=== PATIENT | female | born 1955 | race Caucasian/White ===

== ENCOUNTER 2019-02-04 10:54 | Inpatient (IN) ==
--- NOTE | 2019-02-04 12:04 | Diag Imaging Result Doc PS360 ---
CHEST-PORTABLE - 02/04/2019 INDICATION: WEAKNESS COMPARISON: 01/28/2019 FINDINGS: The lungs are clear. Heart size is normal. No pneumothorax or pleural effusion. IMPRESSION: Negative exam. Electronically signed by Baljit Gleason 02/04/2019 12:02 PM
[2019-02-04 12:12] LABS: BASO% 0.1 % (0.0-0.8); EOS% 3.2 % (0.0-10.0); HEMATOCRIT 36.6 % (37.0-47.0); HEMOGLOBIN 11.7 g/dL (12.0-16.0); IMM GRAN% 0.5 % (0.0-0.5); LYMPH# 1.03 X1000 (1.2-3.4); LYMPH% 13.8 % (20.5-51.1); MCH 27.6 PG (27-31); MCV 86.3 FL (81-99); MONO% 10.3 % (1.7-9.3); MPV 8.8 FL (7.4-10.4); NEUT# 5.35 X1000 (1.4-6.5); NEUT% 72.1 % (42.2-75.2); PLT 242 X1000 (130-400); RBC 4.24 XMIL (4.2-5.4); RDW 13.3 % (11.5-14.5); WBC 7.44 X1000 (4.8-10.8)
[2019-02-04 12:13] LABS: BASO# 0.01 X1000 (0.0-0.2); EOS# 0.24 X1000 (0.0-0.7); IMM GRAN# 0.04 X1000 (0.0-0.04); MONO# 0.77 X1000 (0.11-0.59)
[2019-02-04 12:18] LABS: BILIRUBIN URINE NEGATIVE (NEGATIVE); BLOOD URINE NEGATIVE (NEGATIVE); CLARITY CLEAR (CLEAR); COLOR YELLOW; GLUCOSE URINE NEGATIVE (NEGATIVE); KETONE URINE NEGATIVE (NEGATIVE); LEUKOCYTES URINE NEGATIVE (NEGATIVE); NITRITE URINE NEGATIVE (NEGATIVE); PROTEIN URINE TRACE mg/dL (NEGATIVE); UROBILINOGEN URINE NORMAL
[2019-02-04 12:22] LABS: URINE EPITHELIAL CELLS <10 /HPF (<10); URINE SOURCE CATH
[2019-02-04 12:45] LABS: ALBUMIN 3.7 g/dL (3.5-5.0); CALCIUM 8.9 mg/dL (8.8-10.2); CREATININE 3.2 mg/dL (0.5-0.9); MAGNESIUM 2.3 mg/dL (1.5-2.7); POTASSIUM 5.3 mmol/L (3.5-5.1); TOTAL BILIRUBIN 0.2 mg/dL (0.20-1.00); TOTAL PROTEIN 6.6 g/dL (6.3-8.3)
--- NOTE | 2019-02-04 13:04 | PROVIDER DOCUMENTATION ---
This chart was entered by Lucie Pratt Scribe, acting as scribe for Juhi Mahan MD. HPI-General Adult - General Chief Complaint: Return/Recheck Stated Complaint: Generalized Weakness Time Seen by Provider: 02/04/19 10:58 Source: patient, EMS Allergies/Adverse Reactions: Patient Allergies Allergy/AdvReac Type Severity Reaction Status Date / Time No Known Allergies Allergy Verified 02/04/19 11:10 Home Medications: Home Medication List Medication Instructions Recorded Confirmed Last Taken Type Buspirone HCl 10 mg PO DAILY 01/28/19 01/28/19 Unknown History Cephalexin [Keflex] 500 mg PO 4XDAY #28 cap 01/28/19 Unknown Rx Divalproex E.r. [Depakote ER] 1 tab PO QHS 01/28/19 01/28/19 Unknown History Divalproex E.r. [Depakote ER] 1,000 mg PO QHS 01/28/19 01/28/19 Unknown History Furosemide [Lasix] 40 mg PO DAILY 01/28/19 01/28/19 Unknown History Haloperidol 5 mg PO QHS 01/28/19 01/28/19 Unknown History Haloperidol [Haldol] 2.5 mg PO DAILY 01/28/19 01/28/19 Unknown History Potassium Chloride 10 meq PO DAILY 01/28/19 01/28/19 Unknown History Trazodone [Desyrel] 150 mg PO QHS 01/28/19 01/28/19 Unknown History - History of Present Illness -Gen Adult Nature of Presenting Problems: 63 yowf presents to the ed via ems with c/o weakness and unable to ambulate for 2 weeks. pt sts has been urinating on herself while in her wheelchair because she can not walk. pt lives alone and on exam pt has rash in skin fold of abd and has foul smell to her. pt sts last bm was 4 days prior and has feces on dried on her foot. Location of Pain/Injury: reports: generalized (weakness unable to walk) Severity: reports: moderate Onset/Duration: reports: other (2 weeks) Timing: reports: still present, constant Context/Activities at Onset: reports: light activity Modifying Factors: improves with: nothing Associated Symptoms: reports: genitourinary problems, malaise, rash, weakness, trouble walking. denies: back/neck pain, chest pain, dizziness, fever/chills, headaches, nausea, shortness of breath, vomiting Similar Symptoms Previously?: Yes Recently seen or treated by another doctor?: Yes Review of Systems - Adult - REVIEW OF SYSTEMS - ADULT Constitutional: denies: chills, fever Eyes: reports: no symptoms reported Ears, Nose, Mouth & Throat: reports: no symptoms reported Cardiovascular: reports: see HPI, edema. denies: chest pain, palpitations Respiratory: denies: shortness of breath, wheezing Gastrointestinal: denies: diarrhea, nausea, vomiting Genitourinary: reports: see HPI, incontinence Musculoskeletal: reports: muscle weakness. denies: back pain, neck pain Integumentary: reports: see HPI, rash Neurological: denies: dizziness/vertigo, headache/migraines Psychiatric: reports: no symptoms reported Endocrine: reports: no symptoms reported Hematologic/Lymphatic: reports: no symptoms reported Allergic/Immunologic: reports: no symptoms reported All Other Systems: Reviewed and Negative Past History - Adult - PAST MEDICAL HISTORY-ADULT Review of Records: reports: Old Records Reviewed, Nursing Assessment Review, Medications Reviewed, Social history reviewed & non-contributory. Major Childhood Illnesses: reports: denies history Cardiovascular: reports: denies history Respiratory: reports: denies history Gastrointestinal: reports: denies history Obstetrical/Gynecological: reports: denies history Genitourinary: reports: ESRD (stage 4), incontinence, chronic UTI's Musculoskeletal: reports: denies history Neurological: reports: denies history Psychiatric: reports: depression, schizophrenia Endocrine/Immune: reports: Diabetes, thyroid disorder, other (CKD) Diabetes Type: Type 2 Other Conditions: reports: denies history - PRIOR SURGERIES/PROCEDURES Surgical/Procedure History: reports: BTL, tonsillectomy - IMMUNIZATION STATUS Childhood Immunizations: See Nurse Assessment Flu Vaccine: See Nurse Assessment - FAMILY HISTORY Family History: reviewed, not pertinent - SOCIAL HISTORY Smoking: denies Substance Use: denies Living Situation: alone Physical Exam-General - PHYSICAL EXAM-ADULT Initial Vital Signs Reviewed: Yes - CONSTITUTIONAL General Appearance: alert, mild distress, obese - EYES Eyes: PERRL/EOMI, pale conjunctivae - HEAD, EARS, NOSE, MOUTH & THROAT HENMT: negative: moist mucous membranes (dry) - NECK Neck: full range of motion, supple, normal inspection - RESPIRATORY Respiratory: chest non-tender, lungs clear, normal breath sounds - CARDIOVASCULAR Cardiovascular: normal peripheral pulses, regular rate, rhythm - GASTROINTESTINAL (ABDOMEN) Abdominal Exam: soft, other (pt has rash in skin folds of abd with foul odor) - GENITOURINARY Female Genitalia/Pelvic Exam: deferred Rectal Exam: deferred Hemoccult Exam: deferred - LYMPHATIC Lymphatic: no adenopathy - MUSCULOSKELETAL Back Exam: normal inspection Extremity: pedal edema, swelling (BLE), other (pt sts weak and unable to ambu late for 2 weeks, pt is morbidly obese. pt has feces on feet and sts has been urinating on herself for days while sitting in wheelchair at home) - SKIN Integumentary: normal color, normal turgor, warm/dry - NEUROLOGIC Neurologic: grossly normal - PSYCHIATRIC Psych/Mental Status: normal mood/affect, normal thought content, normal thought process, oriented x 3 Progress - PLAN OF CARE/RESULTS Progress/Plan/Lab Results: Vital Signs - 8 hr 02/04/19 11:05 Temperature 97.8 F Pulse Rate 87 Respiratory Rate 18 Blood Pressure 149/90 O2 Sat by Pulse Oximetry 95 Orders Category Date Time Status Straight Catheterization ORDERED Care 02/04/19 11:44 Active CHEST-PORTABLE [RAD] Stat Exams 02/04/19 11:29 Ordered CBC WITH ELECTRONIC DIFF [HEME] Stat Lab 02/04/19 11:29 Uncollected COMPREHENSIVE METABOLIC PANEL [CHEM] Stat Lab 02/04/19 11:29 Uncollected MAGNESIUM [CHEM] Stat Lab 02/04/19 11:30 Uncollected PRO B-NATRIURETIC PEPTIDE Stat Lab 02/04/19 11:29 Uncollected UA NIMS W/REFLEX CULT PL [URINALYSIS] Stat Lab 02/04/19 11:38 Ordered Result Diagrams: 02/04/19 11:47 02/04/19 11:47 - REASSESSMENT Reassessment #1 Time Reassessed: 13:22 Status: unchanged - EKG 1 Time of EKG reading by physician:: 13:11 EKG Read and Signed by:: Juhi Mahan EKG Interpretation (*Must complete 3 of following elements*): Normal Rate: 91 Rhythm: nsr [place]: normal QRS: normal [place] Interval: normal ST Wave: normal - XRAY 1 XRAY: Bilateral XRAY Study: Chest Impression: See EMR Report (CHEST-PORTABLE - 02/04/2019 INDICATION: WEAKNESS COMPARISON: 01/28/2019 FINDINGS: The lungs are clear. Heart size is normal. No pneumothorax or pleural effusion. IMPRESSION: Negative exam. Electronically signed by Baljit Gleason 02/04/2019 12:02 PM 02/04/19 1202 Interpreting Physician: Baljit Gleason MD Dictated Date/Time: 02/04/19 1202 cc: Juhi Mahan MD; None,PCP) - CONSULTS/PCP/HOSPITALIST Notification #1 *Consult/PCP/Hospitalist*: D/W DR ESTRADA Time Discussed: 13:18 Consult Disposition: Admit Departure - Departure Date of Disposition Decision: 02/04/19 Time of Disposition Decision: 13:21 DIAGNOSIS: Hyperkalemia, Generalized weakness, Tobacco use disorder Renal failure Qualifiers: Renal failure chronicity: unspecified chronicity Qualified Code(s): N19 - Unspecified kidney failure Disposition: HOME 01 Certified Medical Emergency: Emergent Condition: Stable Referrals and Follow-Ups: None,PCP [Primary Care Provider] - Discharge Education: Steps to Quit Smoking, [id number] - Critical Care Note This patient required my direct & personal management of CC.: No Attestation - Physician/ JS Attestation Patient care was provided by Advanced Practice Provider:: No The physician spent face to face time with patient:: Yes Advanced Practice Provider documentation review:: Supervising physician onsite and consulted in the evaluation and care of this patient. The physician did have a face to face encounter with the patient. This chart was documented by the indicated scribe, (Lucie Pratt Scribe) and accurately reflects the services I performed and decisions made by me, Juhi Mahan MD, as attested by the provider's signature.
[2019-02-04] MEDS: NS 1,000 ML IV SCH (15:02)
--- NOTE | 2019-02-04 17:48 | HISTORY AND PHYSICAL ---
CHIEF COMPLAINT: Inability to stand, weakness. HISTORY OF PRESENT ILLNESS: This is a 63-year-old female with a prior history of schizoaffective disorder, bipolar type, agitation, chronic kidney disease stage 4, and hypothyroid. She presented to the emergency room via EMS after they were called to her home by police officers. The patient has a long mental health history. According to a friend, the patient has been sitting in a chair at home for the last 4 days as the patient states she was unable to stand. She has sat in her on urine and feces during this time. The friend has been coming over, bringing her meals and feeding her and the patient states "I ate very good, she spoon fed me all day long." Ms. Acosta was seen in the emergency room on January 28 stating that she was unable to get out of her car and sat in the car for 2 hours in the heat. She was diagnosed with a urinary tract infection. Urine culture ultimately revealed no pathogenic growth. Getting a history from the patient is very difficult as the patient will answer some questions and sometimes during questioning the patient just turns her head and looks away and refuses to answer. The friend at the bedside is very forthcoming with information, although this information is not consistent with our records, as she insists the patient was at our ER 2 nights ago being evaluated, although the ER visit was 7 days prior. The patient and the friend state that the patient has had difficulty standing from a sitting position for quite some time. In fact, she has a lift chair at home. Neither can answer why the patient was unable to stand using the lift chair. At one point the patient answered, " because I didnt lift it. " They state that once she stands with the lift chair "she can hobble in a shuffling step when she wants to go, sometimes she gets down on all fours and crawls." The patient denies any pain. She denies any nausea, vomiting, any diarrhea or constipation. Of note, the friend called the patient's mental health worker. The mental health worker had the friend call the police for a welfare check. When the police came and saw the state the patient was in, they called an ambulance and told the patient that she had no choice, she had to come to the hospital. Therefore, she agreed. PAST MEDICAL HISTORY: 1. Chronic kidney disease stage 5. 2. Hypothyroid. 3. Diabetes mellitus type 2. 4. Schizoaffective disorder, bipolar type. 5. Paranoid schizophrenia. PAST SURGICAL HISTORY: ERCP with stent placement, tonsillectomy, tubal ligation, and multiple mouth surgeries. SOCIAL HISTORY: She does live alone. She has friends that are close by and assist with her getting meals. ALLERGIES: No known drug allergies. HOME MEDICATIONS: Trazodone, potassium chloride, levothyroxine, hydroxyzine, Haldol, Lasix, Depakote. Doses will be obtained by the nursing staff and continued once they are verified. REVIEW OF SYSTEMS: Unable to obtain from the patient. PHYSICAL EXAMINATION: GENERAL: This is a 63-year-old female who is lying on the stretcher in the emergency room, in no distress. VITAL SIGNS: Blood pressure is 127/82, with a heart rate of 84, respirations 20, temperature is 97.8 degrees oral, with room air saturations 100%. EYES: Pupils equal, round, react to light. EOMs are intact. Sclerae anicteric. HENT: Head is normocephalic, atraumatic. Mucous membranes are moist. NECK: Supple. Trachea midline. CARDIOVASCULAR: Regular rate and rhythm. S1 and S2 appreciated. No murmur. PULMONARY: Breath sounds are clear with no increased work of breathing noted. GASTROINTESTINAL: Abdomen is large, soft, nontender, with bowel sounds in all 4 quadrants. She does have a rash in her skin folds. She does have a foul odor. GENITOURINARY: She has no CVA or suprapubic tenderness. NEUROLOGIC: She is awake. She is alert. She is oriented x3. The friend states that she is just choosing not to give us information. LABS: WBC is 7.4, with hemoglobin 11.7, hematocrit 36.6, and platelets of 242,000. Sodium is 144, potassium 5.3, BUN 60, creatinine 3.2, with a glucose of 162. Urinalysis is essentially negative. Chest x-ray: Lungs are clear. Heart size is normal. No pneumothorax or pleural effusion. ASSESSMENT: 1. Generalized weakness. 2. Hyperkalemia. 3. Chronic kidney disease stage 5. 4. Schizoaffective disorder, bipolar type. 5. Paranoid schizophrenia. 6. Hypothyroid. 7. Diabetes mellitus type 2. 8. Inability to stand and walk. PLAN: The patient will be admitted to the medical-surgical floor and she will be placed on telemetry. We will get neuro checks q.6 hours and follow. We will identify her home medications and continue. We will check a CBC, CMP, magnesium, and TSH in the morning. We will continue with gentle hydration. She will be placed on a regular diet. We will place a Jessica catheter at present as the patient is not getting up. We will consult physical therapy and will consult community mental health social worker on discharge planning. We will consult wound care to evaluate. Plan discussed with Dr. Bernardo. Further treatments pending hospital course. Dictated by ALBERT Bansal for Mckay Bernardo MD cc: ALBERT Bansal MD MTDD
--- NOTE | 2019-02-04 17:50 | EKG Report ---
Test Performed on : 02/04/2019 1:11:27 PM Test Reason : CP Blood Pressure : / mmHG Vent. Rate : 091 BPM Atrial Rate : 091 BPM P-R Int : 154 ms QRS Dur : 080 ms QT Int : 362 ms P-R-T Axes : 065 012 058 degrees QTc Int : 445 ms Normal sinus rhythm. Normal ECG When compared with ECG of 28-JAN-2019 17:36, (Unconfirmed) No significant change was found Unconfirmed Result
--- NOTE | 2019-02-04 20:13 | HISTORY AND PHYSICAL ---
ADDENDUM: Patient seen and examined by myself. Full note dictated and discussed with nurse practitioner. Patient presented to the hospital noting that she has been in her wheelchair for the past 4 days, unable to get up. Interestingly, family apparently did bring her things to eat and drink, but did not assist her in getting out of her wheelchair, getting to the restroom, or assist her in calling the ambulance for assistance. Regardless, we will admit her to the hospital, IV fluids. She is in acute renal failure and will follow. cc: Mckay Bernardo MD
[2019-02-04] MEDS ORDERED: CALMOSEPTINE OINTMENT TOP PRN (22:28)
[2019-02-04] MEDS ORDERED: HALDOL PO SCH (23:15)
[2019-02-04] MEDS ORDERED: DEPAKOTE ER PO SCH (23:15)
[2019-02-04] MEDS ORDERED: DESYREL PO SCH (23:15)
[2019-02-05] MEDS: NS 1,000 ML IV SCH ×2 (02:31→16:09)
[2019-02-05 06:31] LABS: HEMATOCRIT 35.9 % (37.0-47.0); HEMOGLOBIN 11.3 g/dL (12.0-16.0); MCH 27.2 PG (27-31); MCHC 31.5 g/dL (33-37); MCV 86.5 FL (81-99); MPV 8.9 FL (7.4-10.4); RBC 4.15 XMIL (4.2-5.4); RDW 13.2 % (11.5-14.5); WBC 7.42 X1000 (4.8-10.8)
[2019-02-05 06:51] LABS: ALBUMIN 3.6 g/dL (3.5-5.0); CALCIUM 8.6 mg/dL (8.8-10.2); CREATININE 3.2 mg/dL (0.5-0.9); MAGNESIUM 2.4 mg/dL (1.5-2.7); TOTAL BILIRUBIN 0.2 mg/dL (0.20-1.00); TOTAL PROTEIN 6.5 g/dL (6.3-8.3)
[2019-02-05 06:53] LABS: POTASSIUM 5.9 mmol/L (3.5-5.1)
[2019-02-05] MEDS ORDERED: KAYEXALATE PO ONE (07:37)
[2019-02-05] MEDS ORDERED: HUMULIN R (PARKWAY) IV ONE (11:42)
[2019-02-05] MEDS ORDERED: D50W SYRINGE IV ONE (11:42)
[2019-02-05] MEDS ORDERED: ALBUTEROL 0.5% INH CONC FOR HYPERKALEMIA INH ONE (11:45)
[2019-02-05] MEDS ORDERED: CALCIUM GLUCONATE 1 GM in NS 50 ML IV ONE (12:00)
[2019-02-05] MEDS ORDERED: SODIUM BICARBONATE 8.4% IV ONE (12:00)
--- NOTE | 2019-02-05 12:36 | EKG Report ---
Test Performed on : 02/05/2019 11:56:40 AM Test Reason : pauses Blood Pressure : / mmHG Vent. Rate : 089 BPM Atrial Rate : 089 BPM P-R Int : 166 ms QRS Dur : 084 ms QT Int : 372 ms P-R-T Axes : 069 018 054 degrees QTc Int : 452 ms Normal sinus rhythm. Normal ECG When compared with ECG of 04-FEB-2019 13:11, (Unconfirmed) No significant change was found Confirmed by Clark Howe MD ([id number]) on 02/10/2019 9:38:51 PM
[2019-02-05 16:38] LABS: ALBUMIN 3.3 g/dL (3.5-5.0); CALCIUM 8.5 mg/dL (8.8-10.2); PHOSPHORUS 3.9 mg/dL (2.7-4.5); POTASSIUM 4.4 mmol/L (3.5-5.1)
--- NOTE | 2019-02-05 19:12 | PROGRESS NOTE ---
DATE: 02/05/2019 SUBJECTIVE: Patient notes that she has been constipated. She has not had a bowel movement in a few days. Denies any fevers or chills. Denies any chest pain, palpitations. Denies any shortness of breath currently. OBJECTIVE: Vital Signs: Temperature 98.6 degrees, pulse 98, respiratory 20, blood pressure 123/75. General: Patient is awake, alert, currently in no respiratory distress. She is sitting up in the bed watching TV. HEENT: Normocephalic. Neck: Supple. Cardiovascular: Regular rate. Chest: Clear, nonlabored. Abdomen: Soft, nondistended. Extremities: Moves all extremities. Neurologic: No focal changes. ASSESSMENT: 1. Hyperkalemia. Potassium is 5.8. 2. Chronic renal failure stage 5. Creatinine is 3.2. 3. Constipation. 4. Generalized weakness. 5. Schizoaffective disorder. 6. Hypothyroidism. 7. Type 2 diabetes. PLAN: We will add Kayexalate to her medications this morning to assist with her potassium as well as her constipation. We will get physical therapy involved. Further orders as needed. ADDENDUM: This afternoon patient was noted to have pauses on her x-ray. A few second pause on her EKG. I am going to recheck labs. Follow her potassium. At this point, we are going to transfer her to [facility] for Cardiology and Nephrology assist. cc: Mckay Bernardo MD
[2019-02-05] MEDS: DESYREL PO SCH (20:50)
[2019-02-05] MEDS: MIRALAX PO SCH (21:19)
[2019-02-05] MEDS: HALDOL PO SCH (21:19)
[2019-02-05] MEDS: DEPAKOTE ER PO SCH (21:19)
[2019-02-05] MEDS: CALMOSEPTINE OINTMENT TOP PRN (21:31)
[2019-02-06] MEDS: NS 1,000 ML IV SCH ×3 (05:10→20:48)
[2019-02-06 06:52] LABS: ALBUMIN 3.2 g/dL (3.5-5.0); CALCIUM 8.7 mg/dL (8.8-10.2); CREATININE 3.2 mg/dL (0.5-0.9); PHOSPHORUS 5.3 mg/dL (2.7-4.5); POTASSIUM 5.5 mmol/L (3.5-5.1)
[2019-02-06] MEDS: MIRALAX PO SCH ×2 (08:40→20:37)
[2019-02-06] MEDS ORDERED: NS 1,000 ML IV SCH (13:12)
--- NOTE | 2019-02-06 13:54 | PROGRESS NOTE ---
DATE: 02/06/2019 SUBJECTIVE: This morning, Ms. Acosta refers to be doing a little better. She, however, refers not to be able to pass any stool for the past couple days. From the history it appears that Ms Acosta was seen in her chair at home for about 4 days. She was found with a lot of fecal material and urine all over herself. OBJECTIVELY: Vital signs: This morning her blood pressure is 130/77, pulse 89, respiration is 18, temperature 99 degrees. General: Ms. Acosta is a 63-year-old female. She is in bed, no distress. HEENT: Mucosa is slightly dry. Anicteric. Acyanotic. Neck: Supple. Chest: Good air entry bilaterally. No crepitations. No rhonchi. Cardiovascular: Regular rate and rhythm. Abdomen: Soft, is distended. There is a very large ventral hernia defect in the low abdomen. Bowel sounds are present. Extremities: No pedal edema. Central nervous system: Patient is awake, alert, and follows basic commands. LABORATORY DATA: No CBC today. Chemistry is reviewed. Creatinine is 3.2, sodium is 144, potassium is 5.5. ASSESSMENT: 1. Generalized weakness associated with inability to stand and walk at home. The patient was apparently found to be in her own feces and urine. She does not seem to have any focal neurological deficits at this point. Unsure if this was all related to metabolic derangements or some underlying mental disease (schizoaffective disorder and paranoid schizophrenia). In either case, Ms. Acosta seems to be doing a little better. We are going to get Physical Therapy to start assessing her. 2. Chronic kidney disease stage 4. 3. Hyperkalemia. Likely due to underlying renal failure. The patient has been started on Lokelma. 4. History of schizoaffective disorder and paranoid schizophrenia. Noted. 5. Chronic constipation. The patient has been started on bowel regimen. We will get a KUB also to rule out any potential obstruction. 6. History of hypothyroidism with elevated TSH consistent with inadequate supplementation. We started patient back on a little higher dose of her thyroid medication. 7. Ventral hernia. Noted. cc: Malachi Birmingham MD
--- NOTE | 2019-02-06 14:11 | Diag Imaging Result Doc PS360 ---
KUB ABDOMEN - 02/06/2019 INDICATION: SBO COMPARISON: None FINDINGS: There is severe constipation with moderate rectal stool impaction. No small bowel obstruction. There is a radiodense stent in the right upper quadrant. IMPRESSION: Severe constipation with moderate rectal stool impaction. Electronically signed by Baljit Gleason 02/06/2019 2:09 PM
--- NOTE | 2019-02-06 14:36 | NEPHROLOGY CONSULTATION ---
DATE: 02/06/2019 REASON FOR CONSULTATION: Hyperkalemia and chronic kidney disease. HISTORY OF PRESENT ILLNESS: Ms. Acosta is a 63-year-old white female with schizoaffective disorder as well as diabetes, obesity, hypertension. She has known chronic kidney disease. Baseline creatinine is between 2.6 and 3.2. She was brought to the emergency room after a wellness visit at home found her sitting in a chair unable to get up. She was fed and watered by her family but she did not get up out of the chair. She had loss of bowel and bladder continence. Ultimately she was brought to the emergency room in this state. Her evaluation in the emergency room found her kidney function at baseline with moderate hyperkalemia with potassium as high as 5.9. Non gap acidosis. The remainder of her exam did not disclose a definite diagnosis in terms of a cause for her weakness. She was admitted to the hospital in [place] and then transferred to [facility]. We were asked to see her to help with management of her hyperkalemia as well as her chronic kidney disease. She was treated with Kayexalate, insulin, IV fluids, albuterol, calcium gluconate prior to transfer. With this treatment her potassium was 4.4 in the afternoon and 5.5 today. PAST MEDICAL HISTORY: As above. HOME MEDICATIONS: Include buspirone, furosemide, haloperidol, cephalexin, trazodone. ALLERGIES: None. SOCIAL HISTORY: As above. FAMILY HISTORY/REVIEW OF SYSTEMS: Otherwise noncontributory. PHYSICAL EXAM: Vital signs: Blood pressure 130/77, heart rate 89, respiration 18, afebrile. General: Morbidly obese white female lying in bed. No distress. Skin: Warm and dry. Conjunctivae are pink. Neck: Neck veins are not visible. Trachea is midline. PMI nonpalpable. Regular rate and rhythm. No gallops, murmurs, rubs. Lungs: Have equal excursion, equal breath sounds. No crackles or wheezes. Abdomen: Soft, obese, nontender. Bowel sounds present. No palpable organomegaly. No masses or bruits. Extremities: Have 1+ edema. No clubbing or cyanosis. IMPRESSION: 1. Chronic kidney disease stage 4 to 5. She is at or near her historical baseline. We will quantify her kidney function while she is in the hospital. 2. Hyperkalemia. She was treated as above. I will continue her Lokelma and observe. 3. Euvolemic or mildly hypervolemic so I will decrease her IV fluids to 50 mL an hour. cc: Dusty Long MD MTDD
[2019-02-06] MEDS: LOKELMA POWDER PACKET PO SCH (15:18)
[2019-02-06] MEDS: DESYREL PO SCH (20:36)
[2019-02-06] MEDS: LACTULOSE PO SCH (20:37)
[2019-02-06] MEDS: HALDOL PO SCH (20:37)
[2019-02-06] MEDS: DEPAKOTE ER PO SCH (20:37)
[2019-02-06] MEDS: ZOFRAN IV PRN (23:39)
[2019-02-07] MEDS: TYLENOL PO PRN ×3 (05:11→20:14)
[2019-02-07] MEDS ORDERED: CALMOSEPTINE OINTMENT TOP PRN (05:37)
[2019-02-07] MEDS: SYNTHROID PO SCH (05:59)
[2019-02-07 06:10] LABS: POTASSIUM 5.4 mmol/L (3.5-5.1)
[2019-02-07 06:11] LABS: ALBUMIN 3.5 g/dL (3.5-5.0); CALCIUM 8.9 mg/dL (8.8-10.2); CREATININE 3.1 mg/dL (0.5-0.9); PHOSPHORUS 4.8 mg/dL (2.7-4.5)
[2019-02-07] MEDS: MIRALAX PO SCH ×2 (08:25→20:22)
[2019-02-07] MEDS: LACTULOSE PO SCH ×2 (08:25→20:21)
[2019-02-07] MEDS: NS 1,000 ML IV SCH (09:53)
[2019-02-07] MEDS: LOKELMA POWDER PACKET PO SCH (13:53)
--- NOTE | 2019-02-07 14:19 | ECHO REPORT ---
ORDER DATE: 02/06/2019 INTERPRETING PHYSICIAN: Dr. Donovan Osei. ECHOCARDIOGRAPHIC MEASUREMENTS: 1. Interventricular septum 0.9. 2. Left ventricular posterior wall 0.9. 3. Diastolic diameter 4.5. 4. Left atrium 4. 5. Aorta 3. SUMMARY OF THE 2-DIMENSIONAL IMAGIN. Aortic valve leaflets are trileaflet. 2. Pulmonic valve was normal. 3. Tricuspid valve was normal. 4. Mitral valve was normal. 5. There is trace pulmonary regurgitation. 6. Mild mitral regurgitation. 7. Mild tricuspid regurgitation. Peak velocity across the tricuspid valve was 2.4 m/sec. 8. Pulmonary artery systolic pressure of 32 mmHg. 9. Peak velocity across the aortic valve is less than 2 m/sec. By Doppler studies, there is no aortic stenosis or regurgitation. 10. Normal left ventricular cavity size. Estimated ejection fraction of 65%. 11. There is no pericardial effusion or obvious intracardiac mass or thrombus seen. 12. Optison was used to assess left ventricular systolic function. cc: Donovan Osei MD
--- NOTE | 2019-02-07 14:25 | PROGRESS NOTE ---
DATE: 02/07/2019 SUBJECTIVE: This morning, Ms. Acosta refers to be doing a whole lot better. Denies any new complaints. OBJECTIVE: Vital Signs: Blood pressure is 145/70, pulse of 82, respirations are 18, temperature is 98.0 degrees. General Examination: Ms. Acosta is a 63-year-old, morbidly obese, female. She is in bed. No distress. HEENT: Mucosa is pink and moist. Anicteric. Acyanotic. Neck: Supple. Chest: Clear to auscultation. Cardiovascular: Regular rate and rhythm. Abdomen: Soft. Distended but nontender. There is a very large ventral hernia defect in the lower abdomen. Extremities: No pedal edema. CORE INSERTER: The patient is awake, alert, oriented, and follows basic commands. Is and Os: Urine output was 1550. Patient is currently negative balance of 13,829. Renal Function Tests: Potassium is 5.4, creatinine is 3.1. ASSESSMENT: 1. Generalized weakness associated with inability to ambulate at home. The patient does not seem to have any neurological deficit. Will be pending physical therapy to assess the patient. 2. Chronic kidney disease stage 4 to 5. Creatinine seems to be baseline. 3. Hyperkalemia secondary to chronic kidney disease. The patient is on Lokelma. 4. History of schizoaffective disorder and paranoid schizophrenia, stable. 5. Chronic constipation. We will continue with bowel regimen. 6. Hypothyroidism. We will continue with a thyroid supplement. 7. Large ventral hernia noted. cc: Malachi Birmingham MD
[2019-02-07] MEDS: HALDOL PO SCH (20:21)
[2019-02-07] MEDS: DESYREL PO SCH (20:21)
[2019-02-07] MEDS: DEPAKOTE ER PO SCH (20:21)
[2019-02-08] MEDS: COLACE PO SCH ×4 (00:28→20:16)
--- NOTE | 2019-02-08 04:35 | CARDIOLOGY CONSULTATION ---
DATE: 02/05/2019 Cardiology was consulted. The patient had a 3-second pause noted on the telemetry. Patient was transferred from [place] to [facility] ICU. Currently vital signs are stable. She is in sinus rhythm. No further pause was noted. She has chronic kidney disease and has hyperkalemia, which was treated earlier today. The patient is a 63-year-old, lady with history of bipolar schizoaffective disorder, chronic kidney disease, hypothyroidism. She came to the emergency room via EMS. Police officers were called. Patient has a long history of mental health issues. Apparently she had been sitting on a chair at home for the last 4 days. She was unable to stand up as she had swelling in her legs. She did not feel well. She denies any chest pain. There is no cough with expectoration. She was diagnosed to have urinary tract infection. She had generalized weakness but no focal weakness to suggest a CVA. She denies any nausea or vomiting, diarrhea or constipation. She has not had any fevers. She has had a cough but no chills. PAST MEDICAL HISTORY: 1. Chronic kidney disease. 2. Hypothyroid. 3. Diabetes. 4. Bipolar disorder. 5. Schizophrenia. PAST SURGICAL HISTORY: 1. ERCP with stent placement. 2. Tonsillectomy. 3. Tubal ligation. 4. Multiple mouth surgeries. SOCIAL HISTORY: She does live alone. She has friends who assist her. HOME MEDICATIONS: Included buspirone 10 mg, Depakote 500 mg tablets 1000 mg at bedtime, Lasix 40 mg a day, haloperidol 5, cephalexin 500, haloperidol 2.5, trazodone 150. In the hospital, she has received Kayexalate, dextrose insulin. PHYSICAL EXAMINATION: Vital signs: Blood pressure 120/80, heart rate 110. Cardiovascular: First and second heart sounds. There was no S3 gallop. There was faint murmur. Respiratory System: Distant breath sounds. No obvious crepitations. Abdomen: Loud, soft, nontender. Examination of extremities: Reveal mild pitting pedal edema. Central Nervous System: Alert, was moving extremities. Detailed central nervous system examination not performed. DIAGNOSTIC DATA: 1. Chest x-ray was unremarkable. 2. Electrocardiogram revealed normal sinus rhythm. There was no ST-T changes to suggest ischemia. LABORATORY EXAMINATION: Sodium 144, potassium 5.3, subsequent potassium was 5.9, BUN 57, creatinine 3.2, magnesium 2.4. TSH 5.7, alkaline phosphatase 115, proBNP 570. WBC 7.43, hemoglobin 11.3, hematocrit 35, platelet count of 242,000. ASSESSMENT AND PLAN: 1. Ms. Siria Acosta is a 63-year-old, lady with history of paranoid schizophrenia, bipolar disorder, diabetes, hypothyroid, chronic kidney disease who is admitted with having being feeling weak, unable to get up and ambulate. She has chronic kidney disease, and Nephrology has been consulted. 2. From a cardiac standpoint, no chest pain. She had a 3-second pause maybe secondary to electrolyte imbalance. We will get an echocardiogram. Labs again have been drawn after her Kayexalate. Further labs pending. 3. Diabetes. Continue with her medications. 4. She has got significant weakness, generalized, unknown etiology, and I will get cardiac enzymes. There may be also an element of rhabdomyolysis accounting for her worsening renal function as well. Thank you for the consult. We will follow. cc: Donovan Osei MD
[2019-02-08] MEDS: NS 1,000 ML IV SCH (05:13)
[2019-02-08] MEDS: ZOFRAN IV PRN ×2 (05:13→22:36)
[2019-02-08] MEDS: SYNTHROID PO SCH (06:00)
[2019-02-08 06:15] LABS: ALBUMIN 3.6 g/dL (3.5-5.0); CALCIUM 8.9 mg/dL (8.8-10.2); PHOSPHORUS 4.6 mg/dL (2.7-4.5); POTASSIUM 5.4 mmol/L (3.5-5.1)
[2019-02-08 06:16] LABS: CALCIUM 8.8 mg/dL (8.8-10.2); PHOSPHORUS 4.7 mg/dL (2.7-4.5)
[2019-02-08 06:34] LABS: FERRITIN 88 ng/mL (13-150)
[2019-02-08] MEDS: VENOFER 200 MG in NS 150 ML IV SCH (08:02)
[2019-02-08] MEDS: LACTULOSE PO SCH ×3 (08:02→20:16)
[2019-02-08] MEDS: MIRALAX PO SCH ×3 (08:02→20:16)
--- NOTE | 2019-02-08 13:23 | PROGRESS NOTE ---
DATE: 02/08/2019 SUBJECTIVE: This morning Ms. Acosta refers to be doing a little better. She still complains of being constipated. She however feels slightly stronger. OBJECTIVE: Vital Signs: Blood pressure 170/82, pulse of 85, respirations 18, and temperature 98.4 degrees. Patient is saturating 96% on room air. General: Ms. Acosta is a 63-year-old morbidly obese female. She is in bed. BMI is 50. She was not in any cardiopulmonary distress. HEENT: Mucosa is pink and moist. Anicteric. Acyanotic. Neck: Supple. Chest: Good air entry bilateral. There were no crepitations. No rhonchi. Cardiovascular: Regular rate and rhythm. Abdomen: Soft. Distended. There is a very large ventral hernia defect in the lower abdomen. Extremities: No pedal edema. DOUBLE END SEWER: Patient is awake, alert, and follows basic commands. LABORATORY DATA: Also has been reviewed. Chemistry shows potassium is 5.4, creatinine is 3, which has been fairly same as yesterday. Ferritin is 88 with a percent saturation of 13 consistent with iron deficiency. PTH is 88. ASSESSMENT: 1. Generalized weakness associated with inability to ambulate at home. The patient has no neurological deficit, and she is pending physical therapy evaluation. 2. CKD stage IV to V. The patient's creatinine continues to be in the 3's. She is getting a 24 hour urine collection today. 3. Hyperkalemia secondary to CKD. We will continue with Lokelma. 4. Chronic constipation. We will continue with bowel regimen. 5. Hypothyroidism. Patient is on supplement. 6. Large ventral hernia noted. 7. History of schizoaffective disorder and paranoid schizophrenia stable. 8. Iron deficiency anemia. Patient has been started on iron infusion by Nephrology. 9. Mild secondary hyperparathyroidism due to underlying renal failure. In general, I think Ms. Acosta is fairly stable with pending physical therapy evaluation today. She is also getting a 24 hour urine collection for adequate renal function estimation. The patient has been started on iron infusion for iron deficiency anemia. cc: Malachi Birmingham MD [facility]
[2019-02-08] MEDS: LOKELMA POWDER PACKET PO SCH (15:10)
--- NOTE | 2019-02-08 18:19 | NEPHROLOGY PROGRESS NOTE ---
DATE: 02/08/2019 SUBJECTIVE: Patient resting in bed. She states that she has continued to have some difficulty breathing. OBJECTIVE: Vital Signs: Temperature 97.6 degrees, pulse 95, respiratory rate 20, blood pressure 143/69. Intake 2.1 L. Output 7 L. PHYSICAL EXAMINATION: General: Middle-aged female, resting in bed. She does not appear in acute distress. HEENT: Normocephalic, atraumatic. Oral mucosa appears moist. Neck: Supple without JVD. Cardiovascular: Regular rate and rhythm. Pulmonary: Equal excursion. Decreased breath sounds. No increased work of breathing. Abdomen: Obese, nontender. Positive bowel sounds. Genitourinary: Not inspected. Jessica catheter. Extremities: 1+ edema. No clubbing, cyanosis. Integumentary: Skin is pale, warm and dry. Neurologic: Grossly nonfocal. LABORATORY DATA: Sodium 144, potassium 5.4, CO2 22, creatinine 3.0. ASSESSMENT AND PLAN: 1. Chronic kidney disease stage 4 to 5. Renal function appears close to his historical baseline. Order a 24 hour urine and a total protein to quantify and stratify her current renal function. 2. Hyperkalemia stable. Continue on Lokelma. 3. Fluid volume is not grossly overloaded and again she has been making greater than 6 L urine a day. Dictated by ALBERT Bernal for Dusty Long MD Face to face encounter, data reviewed, discussed with Trung Cole on 02/08/19. I agree with the above assessment and plan of care. cc: Dusty Long MD [facility]
[2019-02-08] MEDS: DESYREL PO SCH ×2 (19:34→20:16)
[2019-02-08] MEDS: TYLENOL PO PRN (19:34)
[2019-02-08] MEDS: HALDOL PO SCH ×2 (19:34→20:16)
[2019-02-08] MEDS: DEPAKOTE ER PO SCH ×2 (19:35→20:16)
[2019-02-09] MEDS: ZOFRAN IV PRN (05:35)
[2019-02-09 05:45] LABS: ALBUMIN 3.5 g/dL (3.5-5.0); CALCIUM 8.8 mg/dL (8.8-10.2); CREATININE 3.1 mg/dL (0.5-0.9); PHOSPHORUS 4.8 mg/dL (2.7-4.5); POTASSIUM 5.4 mmol/L (3.5-5.1)
[2019-02-09] MEDS: SYNTHROID PO SCH (06:14)
[2019-02-09] MEDS: COLACE PO SCH ×2 (09:16→20:05)
[2019-02-09] MEDS: LACTULOSE PO SCH (09:16)
[2019-02-09] MEDS: VENOFER 200 MG in NS 150 ML IV SCH (09:16)
[2019-02-09] MEDS: MIRALAX PO SCH ×2 (09:17→20:06)
[2019-02-09] MEDS ORDERED: PATIENT'S OWN MED IM ONE (12:34)
[2019-02-09] MEDS: LOKELMA POWDER PACKET PO SCH (13:00)
--- NOTE | 2019-02-09 14:28 | PROGRESS NOTE ---
DATE: 02/09/2019 SUBJECTIVE: This morning, Ms. Acosta refers to be doing fairly okay. No new complaints. OBJECTIVE: Vital Signs: Blood pressure is 148/72, pulse of 89, respirations are 20, temperature is 97.8 degrees. General Examination: Ms. Acosta is a 63-year-old, obese, female. BMI is 49.9. She is in bed. No distress. HEENT: Mucosa is pink, slightly dry. Anicteric. Acyanotic. Neck: Supple. Chest: Clear to auscultation. Cardiovascular: Regular rate and rhythm. Abdomen: Soft and distended. There is a large ventral hernia defect in the lower abdomen. Extremities: No pedal edema. 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 Follows basic commands. Laboratory Data: Sodium is 142, potassium is 5.4, chloride is 107, bicarb is 24, BUN is 49, creatinine is 3.1. Is and Os: Urine output was 8470. It is currently negative balance over 26,000. Current Medications: Have all been reviewed. ASSESSMENT: 1. Generalized weakness and deconditioning on presentation. 2. Chronic kidney disease stage IV to V. Creatinine is fairly at baseline. 3. Polyuria. Patient seems to be having excessive urine output for the past 3 days. She is currently about 26,000 fluid negative. There is an order for fluid restriction from nephrology. 4. Chronic constipation. Patient is on bowel regimen. 5. Hyperkalemia secondary to chronic kidney disease. The patient is on Lokelma. 6. Large ventral hernia noted. 7. History of schizoaffective and paranoid schizophrenia. 8. Iron deficiency anemia. Patient is getting iron infusion. 9. Mild secondary hyperparathyroidism due to renal failure. PLAN: In general, Ms. Acosta is clinically stable. Has been evaluated by physical therapy on three different occasions. She seems to be feeling a little stronger than before. We are going to follow further recommendations from nephrology. We will also follow the lab trend of the fluid deprivation tests. cc: Malachi Birmingham MD [facility]
--- NOTE | 2019-02-09 15:22 | NEPHROLOGY PROGRESS NOTE ---
DATE: 02/09/2019 SUBJECTIVE: The patient resting in bed. She is complaining of some abdominal cramping. States she has not had a bowel movement in a week. OBJECTIVE: Vital Signs: Temperature 98.9 degrees, pulse 85, respiratory rate 19, blood pressure 153/85. Intake not measured. Output 8.4 L. Her cumulative output has been 37 L. General: This is a middle-age female resting in bed. Does not appear in acute distress. HEENT: Normocephalic, atraumatic. NELY. Oral mucosa moist. Dentition poor. Neck: Supple without JVD. Cardiovascular: Regular rate and rhythm. Pulmonary: Clear bilaterally. Abdomen: Soft. Denies tenderness. GENITOURINARY: Jessica catheter with clear yellow urine. A 24-hour urine in place. Extremities: One plus edema. Integumentary: Skin is warm and dry. Neurologic: Grossly nonfocal. LABORATORY DATA: Sodium 142, potassium 5.4, CO2 of 24, creatinine 3.1. ASSESSMENT AND PLAN: 1. Chronic kidney disease stage IV to V. Likely from lithium. 2. Polyuria. 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 Water deprivation test today. Dictated by ALBERT Bernal for Dusty Long MD Face to face encounter, data reviewed, discussed with Trung Cole on 02/09/19. I agree with the above assessment and plan of care. cc: Dusty Long MD [facility]
[2019-02-09] MEDS: DESYREL PO SCH (20:02)
[2019-02-09] MEDS: HALDOL PO SCH (20:03)
[2019-02-09] MEDS: DEPAKOTE ER PO SCH (20:03)
[2019-02-09] MEDS: CALMOSEPTINE OINTMENT TOP PRN (20:16)
[2019-02-09] MEDS: TYLENOL PO PRN (22:48)
[2019-02-10] MEDS: TYLENOL PO PRN (05:39)
[2019-02-10] MEDS: SYNTHROID PO SCH ×2 (05:40→06:00)
[2019-02-10 06:08] LABS: ALBUMIN 3.6 g/dL (3.5-5.0); CALCIUM 8.8 mg/dL (8.8-10.2); CREATININE 3.3 mg/dL (0.5-0.9); PHOSPHORUS 4.4 mg/dL (2.7-4.5); POTASSIUM 4.9 mmol/L (3.5-5.1)
[2019-02-10] MEDS ORDERED: DDAVP SUBQ ONE (09:00)
[2019-02-10] MEDS: VENOFER 200 MG in NS 150 ML IV SCH (09:47)
[2019-02-10] MEDS: COLACE PO SCH ×2 (09:47→20:55)
[2019-02-10] MEDS: MIRALAX PO SCH ×2 (09:47→20:55)
--- NOTE | 2019-02-10 10:19 | PROGRESS NOTE ---
DATE: 02/10/2019 SUBJECTIVE: This morning, Ms. Gallagher referred to be doing pretty okay and no new complaints. She still has not had a bowel movement. OBJECTIVE: Vital signs: Blood pressure is 142/75, pulse of 81, respirations 18, temperature 98 degrees. General: Ms. Acosta is a 63-year-old female. She is in bed. No distress. HEENT: Mucosa is pink and slightly dry. Anicteric. Acyanotic. Neck: Supple. Chest: Good air entry bilateral. No crepitations. No rhonchi. Cardiovascular: Regular rate and rhythm. Abdomen: Soft, distended, and a large ventral hernia defect on the left lower abdomen. Extremities: No pedal edema. Central nervous system: Patient is awake, alert. Follows basic commands. Intake and output: Urine output was 8470 for a total negative balance of over 32,000. ASSESSMENT: 1. Generalized weakness and deconditioning on presentation. Physical Therapy is on board. 2. Chronic kidney disease stage 4 to 5. Creatinine continues to be fairly stable. 3. Polyuria. Presumably drug-induced nephrogenic diabetes insipidus. Urinalysis is being done to rule this out. I understand the patient had a remote history of taking lithium in the past. Currently she is not on that. 4. Chronic constipation. Patient is on bowel regimen. 5. Hyperkalemia secondary to chronic kidney disease, improved. 6. History of schizoaffective and paranoid schizophrenia. We will continue with antipsychotics. 7. Large ventral hernia noted. 8. Iron deficiency anemia. Patient is on Venofer infusion. cc: Malachi Birmingham MD [facility]
[2019-02-10 13:25] LABS: ALBUMIN 3.4 g/dL (3.5-5.0); CALCIUM 8.7 mg/dL (8.8-10.2); CREATININE 3.3 mg/dL (0.5-0.9); PHOSPHORUS 4.2 mg/dL (2.7-4.5)
[2019-02-10 14:59] LABS: ALBUMIN 3.6 g/dL (3.5-5.0); CALCIUM 8.7 mg/dL (8.8-10.2); CREATININE 3.2 mg/dL (0.5-0.9); PHOSPHORUS 4.1 mg/dL (2.7-4.5); POTASSIUM 4.8 mmol/L (3.5-5.1)
[2019-02-10] MEDS: D5W 2,000 ML IV SCH ×2 (18:38→22:53)
--- NOTE | 2019-02-10 19:47 | NEPHROLOGY PROGRESS NOTE ---
DATE: 02/10/2019 SUBJECTIVE: Patient is sitting up in bed. She is asking if she can have something to drink. OBJECTIVE: Vital Signs: Temperature 98, pulse 81, respiratory rate 18, oxygen saturation 95%. Intake none, output 5.3 L. General: Middle-aged female, resting in bed. No acute distress. HEENT: Normocephalic and atraumatic. Neck: Supple. No JVD. Cardiovascular: Regular rate and rhythm. Pulmonary: Clear. Abdomen: Soft. Positive bowel sounds. : Jessica catheter. Extremities: Trace to 1+ edema. Integumentary: Skin warm and dry. Neurologic: Grossly nonfocal. LAB DATA: Sodium 153, potassium 4.9. BUN 48, creatinine 3.3. She had a urine osmolality of 254. ASSESSMENT AND PLAN: 1. Chronic kidney disease stage 4 to 5. Likely secondary to previous lithium use. 2. Polyuria. 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 She has completed a water deprivation test. Her urine osmolality remains low. We will give 2 mcg of DDAVP and then repeat her urine osmolality and renal profile every 2 hours x2. Patient can resume fluids after the test is complete. Dictated by ALBERT Bernal for Dusty Long MD Face to face encounter, data reviewed, discussed with Trung Cole on 02/10/19. I agree with the above assessment and plan of care. cc: Dusty Long MD [facility]
[2019-02-10] MEDS: DESYREL PO SCH (20:55)
[2019-02-10] MEDS: HALDOL PO SCH (20:55)
[2019-02-10] MEDS: DEPAKOTE ER PO SCH (20:56)
[2019-02-10] MEDS ORDERED: D5W 1,000 ML IV SCH (23:00)
[2019-02-11] MEDS ORDERED: TUCKS HEMORRHOIDAL OINTMENT PR PRN (03:43)
[2019-02-11] MEDS ORDERED: PREPARATION H OINT PR PRN (04:01)
[2019-02-11] MEDS: TYLENOL PO PRN (04:49)
[2019-02-11 06:19] LABS: BASO# 0.03 X1000 (0.0-0.2); BASO% 0.3 % (0.0-0.8); EOS# 0.28 X1000 (0.0-0.7); EOS% 2.9 % (0.0-10.0); HEMATOCRIT 36.5 % (37.0-47.0); HEMOGLOBIN 11.1 g/dL (12.0-16.0); LYMPH% 15.5 % (20.5-51.1); MCH 26.9 PG (27-31); MCHC 30.4 g/dL (33-37); MCV 88.4 FL (81-99); MONO# 1.19 X1000 (0.11-0.59); MONO% 12.3 % (1.7-9.3); MPV 9.2 FL (7.4-10.4); NEUT# 6.57 X1000 (1.4-6.5); PLT 236 X1000 (130-400); RBC 4.13 XMIL (4.2-5.4); RDW 13.1 % (11.5-14.5); WBC 9.67 X1000 (4.8-10.8)
[2019-02-11] MEDS: SYNTHROID PO SCH (06:36)
[2019-02-11 06:46] LABS: ALBUMIN 3.5 g/dL (3.5-5.0); CREATININE 2.9 mg/dL (0.5-0.9); PHOSPHORUS 4.3 mg/dL (2.7-4.5); POTASSIUM 4.1 mmol/L (3.5-5.1)
[2019-02-11] MEDS ORDERED: HALDOL DECANOATE IM ONE (08:06)
[2019-02-11] MEDS: VENOFER 200 MG in NS 150 ML IV SCH (09:29)
[2019-02-11] MEDS: MIRALAX PO SCH ×2 (09:29→21:27)
[2019-02-11] MEDS: COLACE PO SCH ×2 (09:29→21:27)
[2019-02-11] MEDS ORDERED: GOLYTELY PO ONE (10:25)
--- NOTE | 2019-02-11 10:54 | PROGRESS NOTE ---
DATE: 02/11/2019 SUBJECTIVE: This morning, Ms. Acosta refers to be doing pretty well. No new complaints. She still remains constipated. OBJECTIVE: Vital Signs: Blood pressure is 125/82, pulse of 80, respirations are 18, temperature is 98.6 degrees. General Examination: Ms. Acosta is a 63-year-old, female, morbidly obese. BMI is 50.4. She is in bed. No distress. HEENT: Mucosa is pink and moist. Anicteric. Acyanotic. Neck: Supple. Chest: Good air entry bilaterally. No crepitations. No rhonchi. Cardiovascular: Regular rate and rhythm. Abdomen: Soft, distended. There is a large ventral hernia defect on the left lower abdomen. Extremities: No pedal edema. 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 Laboratory Data: CBC is unremarkable except for mild normocytic anemia. Chemistry is unremarkable. Creatinine is down to 2.9. Urine osmolarity did improve with administration of the desmopressin. ASSESSMENT: 1. Generalized weakness and deconditioning on presentation. 2. Chronic kidney disease stage 4 to 5. 3. Polyuria with analysis consistent with diabetes insipidus. The patient's urine osmolarity seems to have increased slightly after the administration of desmopressin, however not enough for a central type of diabetes insipidus. We will wait for nephrology to evaluate the patient and give us further recommendations. 4. Chronic constipation. Patient does not seems to be responding with current bowel regimen. We will start her on GoLYTELY. 5. Hyperkalemia, resolved. 6. Schizoaffective disorder and paranoid schizophrenia. 7. Large ventral hernia noted. 8. Iron deficiency anemia. The patient is on Venofer infusion. cc: Malachi Birmingham MD [facility]
--- NOTE | 2019-02-11 19:17 | NEPHROLOGY PROGRESS NOTE ---
DATE: 02/11/2019 SUBJECTIVE: Patient resting in bed. Does not appear in distress. OBJECTIVE: Vital Signs: Temperature 98.3 degrees, pulse 87, respiratory rate 20, blood pressure 149/88. Intake 4 L, output 4.1 L. General: This is a middle-aged female, resting in bed. She is awake and alert in no acute distress. HEENT: Normocephalic, atraumatic. PERRLA. Neck: Supple without JVD. Cardiovascular: Regular rate. Pulmonary: Clear bilaterally. Abdomen soft, nontender, normal bowel sounds. Jessica catheter, yellow urine. Extremities: No edema. LABORATORY STUDIES: WBC of 9.6, hemoglobin 11.1, sodium 142, potassium 4.1, CO2 22, creatinine of 2.9 (3.2, 3.3). ASSESSMENT AND PLAN: 1. Chronic kidney disease 4 to 5 secondary to previous lithium use. Renal functions are fairly stable at this time. 2. 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 No medication regimen change. Patient just needs to stay hydrated at this point. 3. Electrolytes, acid-base balance anemia, stable. Dictated by ALBERT Bernal for Dusty Long MD Face to face encounter, data reviewed, discussed with Trung Cole on 02/11/19. I agree with the above assessment and plan of care. cc: Dusty Long MD [facility]
[2019-02-11] MEDS: DESYREL PO SCH (21:27)
[2019-02-11] MEDS: DEPAKOTE ER PO SCH (21:27)
[2019-02-11] MEDS: HALDOL PO SCH (21:27)
[2019-02-12 06:14] LABS: BASO# 0.02 X1000 (0.0-0.2); BASO% 0.2 % (0.0-0.8); EOS# 0.24 X1000 (0.0-0.7); EOS% 2.8 % (0.0-10.0); HEMATOCRIT 35.1 % (37.0-47.0); HEMOGLOBIN 11.1 g/dL (12.0-16.0); IMM GRAN# 0.12 X1000 (0.0-0.04); IMM GRAN% 1.4 % (0.0-0.5); LYMPH# 1.58 X1000 (1.2-3.4); LYMPH% 18.6 % (20.5-51.1); MCH 27.2 PG (27-31); MCHC 31.6 g/dL (33-37); MONO# 0.97 X1000 (0.11-0.59); MONO% 11.4 % (1.7-9.3); MPV 9.1 FL (7.4-10.4); NEUT# 5.57 X1000 (1.4-6.5); NEUT% 65.6 % (42.2-75.2); PLT 239 X1000 (130-400); RBC 4.08 XMIL (4.2-5.4)
[2019-02-12 06:34] LABS: ALBUMIN 3.2 g/dL (3.5-5.0); CALCIUM 8.5 mg/dL (8.8-10.2); CREATININE 2.8 mg/dL (0.5-0.9); PHOSPHORUS 4.5 mg/dL (2.7-4.5); POTASSIUM 4.2 mmol/L (3.5-5.1)
[2019-02-12] MEDS: SYNTHROID PO SCH (07:55)
--- NOTE | 2019-02-12 09:15 | Diag Imaging Result Doc PS360 ---
EXAM: KUB ABDOMEN 02/12/2019 HISTORY: SBO TECHNIQUE: KUB COMMENT: There is a large amount of stool in the rectum. There is an apparent biliary stent. There is gas and stool throughout the colon. There is either a prominent outpouching of the abdomen inferolaterally on the left or a large ventral hernia. There is no evidence of small bowel dilatation in the stomach is not particularly distended. No evidence organomegaly or mass is present. IMPRESSION: Constipation with fecal impaction. Electronically signed by Tyshawn Wise 02/12/2019 9:12 AM
[2019-02-12] MEDS: VENOFER 200 MG in NS 150 ML IV SCH (10:17)
[2019-02-12] MEDS: COLACE PO SCH ×2 (10:17→22:41)
[2019-02-12] MEDS: MIRALAX PO SCH ×2 (10:18→22:40)
[2019-02-12] MEDS: TYLENOL PO PRN ×2 (15:23→23:35)
--- NOTE | 2019-02-12 15:55 | PROGRESS NOTE ---
DATE: 02/12/2019 SUBJECTIVE: This morning Ms. Acosta refers to be doing a whole lot better. She has been having adequate bowel movement. She was able to move around with physical therapy. OBJECTIVE: Blood pressure is 154/91, pulse of 90, respirations 20, temperature 98.4 degrees.General: Ms. Acosta is a 63-year-old morbidly obese female. She is in bed. No distress. Mucosa is pink and moist. Anicteric. Acyanotic. Neck: Supple. Chest: Good air entry bilateral. There were no crepitations, no rhonchi. Cardiovascular: Regular rate and rhythm. Abdomen: Soft, distended. There is a ventral hernia defect in the lower left abdomen. Extremities: No pedal edema. 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 No focal neurological deficit. LABORATORY DATA: CBC is reviewed. There is mild normocytic anemia. Chemistry is also reviewed. Sodium is up to 142, creatinine is 2.8. The patient urine output was 8100 overnight. He is currently behind 38,000. ASSESSMENT: 1. Generalized weakness and deconditioning. 2. Chronic kidney disease stage 4 to 5. 3. 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 4. Chronic constipation, improved. 5. Critical hyperkalemia on presentation, improved. 6. History of schizoaffective disorder and paranoid schizophrenia. 7. Large ventral hernia. 8. Iron deficiency anemia, patient on infusion. So today Ms. Acosta has been having adequate bowel movements. She feels better. A KUB continues to show some constipation with fecal impaction. We will continue with the bowel regimen. We will also continue with physical therapy and get Ms. Acosta a bit stronger before we discharge her. cc: Malachi Birmingham MD
--- NOTE | 2019-02-12 20:40 | NEPHROLOGY PROGRESS NOTE ---
DATE: 02/12/2019 SUBJECTIVE: Patient resting in bed. She states that she would like to get up and go to the bathroom. OBJECTIVE: Vital Signs: Temperature 98.4 degrees, pulse 90, respiratory rate 20, blood pressure 133/86. Intake 1.5 L. Output 8.1 L. General: Middle-aged female, resting in bed. Does not appear in distress. HEENT: Normocephalic, atraumatic. Oral mucosa moist. Poor dentition. Neck: Supple, thick. Cardiovascular: Regular rate and rhythm. Pulmonary: She is clear bilaterally. Equal excursion. Abdomen: Obese soft, positive bowel sounds. : Jessica catheter. Extremities: No edema. Integumentary: Skin is warm and dry. LABORATORY STUDIES: WBC of 8.5, hemoglobin 11.1. Sodium 147, potassium 4.2, CO2 21, creatinine 2.8. Albumin 3.2. ASSESSMENT AND PLAN: 1. Chronic kidney disease stage IV to V secondary to previous lithium use. Her renal function remains stable to slightly improved. No indications for intervention otherwise. 2. 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 Continue hydration. 3. Electrolytes, acid-base balance. These are stable. DISPOSITION: Deconditioning from a renal perspective she can have her Jessica catheter removed and bedside commode privileges and continue with physical therapy. She can be discharged at the discretion of the primary. We will follow up as an outpatient 2 weeks after discharge. Dictated by ALBERT Bernal for Dusty Long MD Face to face encounter, data reviewed, discussed with Trung Cole on 02/12/19. I agree with the above assessment and plan of care. cc: Dusty Long MD [facility]
[2019-02-12] MEDS: DESYREL PO SCH (22:40)
[2019-02-12] MEDS: HALDOL PO SCH (22:40)
[2019-02-12] MEDS: DEPAKOTE ER PO SCH (22:40)
[2019-02-13] MEDS: TYLENOL PO PRN ×2 (04:45→12:17)
[2019-02-13 05:39] LABS: BASO# 0.02 X1000 (0.0-0.2); BASO% 0.2 % (0.0-0.8); EOS# 0.19 X1000 (0.0-0.7); EOS% 2.2 % (0.0-10.0); HEMATOCRIT 36.9 % (37.0-47.0); HEMOGLOBIN 11.6 g/dL (12.0-16.0); IMM GRAN# 0.13 X1000 (0.0-0.04); IMM GRAN% 1.5 % (0.0-0.5); LYMPH# 1.59 X1000 (1.2-3.4); LYMPH% 18.6 % (20.5-51.1); MCHC 31.4 g/dL (33-37); MONO# 0.84 X1000 (0.11-0.59); MONO% 9.8 % (1.7-9.3); NEUT# 5.79 X1000 (1.4-6.5); NEUT% 67.7 % (42.2-75.2); PLT 235 X1000 (130-400); RBC 4.29 XMIL (4.2-5.4); RDW 13.2 % (11.5-14.5); WBC 8.56 X1000 (4.8-10.8)
[2019-02-13 06:19] LABS: ALBUMIN 3.4 g/dL (3.5-5.0); CALCIUM 8.5 mg/dL (8.8-10.2); CREATININE 2.9 mg/dL (0.5-0.9); PHOSPHORUS 4.9 mg/dL (2.7-4.5); POTASSIUM 4.2 mmol/L (3.5-5.1)
[2019-02-13] MEDS: SYNTHROID PO SCH (06:36)
[2019-02-13] MEDS: COLACE PO SCH ×3 (09:21→20:30)
[2019-02-13] MEDS: MIRALAX PO SCH ×2 (09:21→20:31)
[2019-02-13] MEDS ORDERED: VESICARE PO ONE (13:05)
--- NOTE | 2019-02-13 14:11 | PROGRESS NOTE ---
DATE: 02/13/2019 SUBJECTIVE: This morning Ms. Acosta refers to be doing okay. Complained about cramps and bladder spasms. OBJECTIVE: Vital signs: Blood pressure is 139/77, pulse of 87, respirations 20, temperature 97.4 degrees. General: Ms. Acosta is a 63-year-old female, morbidly obese. She is in bed, no distress. HEENT: Mucosa is pink and moist. Anicteric. Acyanotic. Neck: Supple. Chest: Good air entry bilaterally. No crepitations. No rhonchi. Cardiovascular: Regular rate and rhythm. No murmurs. Abdomen: Soft, distended. There is a large left side hernia defect. 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 LABORATORY DATA: CBC is unremarkable except for mild normocytic anemia. CMP: Normal chemistry with a creatinine of 2.9, almost the same as yesterday. ASSESSMENT: 1. 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 2. Generalized weakness and deconditioning. Patient continue with physical therapy. 3. CKD stage 4 to 5. Nephrology on board. 4. Chronic constipation improving with bowel regimen. 5. Critical hyperkalemia on presentation resolved. 6. History of schizoaffective and paranoid schizophrenia disorder. 7. Large abdominal ventral hernia. 8. Iron deficiency anemia. Patient is getting replacement. 9. Bladder spasms. Patient will be started on VESIcare. PLAN: In general, I think Ms. Acosta is doing a lot better. Physical therapy is working hard with her to get her strong enough to be able to be on her own. She was able to walk 210 with minimum assistance front wheel walker yesterday. cc: Malachi Birmingham MD
[2019-02-13] MEDS ORDERED: B & O 15A SUPP PR ONE (19:46)
[2019-02-13] MEDS: HALDOL PO SCH (20:27)
[2019-02-13] MEDS: DESYREL PO SCH (20:27)
[2019-02-13] MEDS: DEPAKOTE ER PO SCH (20:27)
[2019-02-14] MEDS: VESICARE PO SCH ×2 (05:52→10:33)
[2019-02-14] MEDS: SYNTHROID PO SCH (06:08)
[2019-02-14 06:49] LABS: ALBUMIN 3.7 g/dL (3.5-5.0); CALCIUM 8.3 mg/dL (8.8-10.2); PHOSPHORUS 4.5 mg/dL (2.7-4.5); POTASSIUM 4.7 mmol/L (3.5-5.1)
[2019-02-14] MEDS: ZOFRAN IV PRN (10:27)
[2019-02-14] MEDS: TYLENOL PO PRN (10:27)
[2019-02-14] MEDS: COLACE PO SCH ×2 (10:35→10:51)
[2019-02-14] MEDS: MIRALAX PO SCH (10:35)
--- NOTE | 2019-02-14 10:38 | Diag Imaging Result Doc PS360 ---
EXAM: KUB ABDOMEN HISTORY: SBO TECHNIQUE: Abdomen single view COMPARISON: 02/12/2019 FINDINGS: Stool remains in the rectum. Decreased stool in the colon. No small bowel dilatation. No organomegaly. Biliary stent in the mid right abdomen. IMPRESSION: Prominent stool remains in the rectum, but otherwise no significant constipation. Electronically signed by Guanakito Pulliam 02/14/2019 10:36 AM
[2019-02-14] MEDS ORDERED: FLEET ENEMA PR ONE (11:18)
[2019-02-14] MEDS: ROBAXIN PO SCH ×2 (14:34→22:16)
--- NOTE | 2019-02-14 15:01 | PROGRESS NOTE ---
DATE: 02/14/2019 SUBJECTIVE: This morning, Ms. Acosta refers to be doing much better. However, she still continues to have spasm of her bladder and constipation despite she has been having some bowel movement. OBJECTIVE: Vital signs: Blood pressure is 147/87, pulse of 98, respirations 17, temperature 98.1 degrees. General: Ms. Acosta is a 63-year-old female. She is in bed in no distress. HEENT: Mucosa is pink and moist. Anicteric. Acyanotic. Neck: Supple. Chest: Good air entry bilateral. There are no crepitations. No rhonchi. Cardiovascular: Regular rate and rhythm. Abdomen: Soft, distended, but nontender. There is a large left-sided hernia defect. OPTICAL INSTRUMENT INSPECTOR: Patient is awake, alert, and oriented. LABORATORY DATA: Creatinine is 3. Rest of chemistry is unremarkable. Sodium is 141. The patient's I's and O's not documented for yesterday. ASSESSMENT: 1. 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 2. Generalized weakness and deconditioning. Physical therapy is on board. 3. Chronic kidney disease stage 4 to 5. Nephrology is on board. 4. Chronic constipation with fecal impaction. The patient is on bowel regimen. KUB this morning seems to suggest some improvement. 5. Critical hyperkalemia on presentation, improved. 6. History of schizoaffective and paranoid schizophrenia. We will continue with antipsychotics. 7. Large abdominal ventral wall hernia. 8. Iron-deficiency anemia. We will continue with replacement. 9. Bladder spasms. Patient has been started on VESIcare . 10. Cardiac arrhytmias. Patient has had some pulses recorded on her telemonitor. 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 Cardiology on board. PLAN: So in general, I think Ms. Acosta continues to be remarkably stable. Sodium is within normal range. We think she is compensating orally for her polyuria. Creatinine is baseline. We will encourage her to participate more with physical therapy. We will get her a Fleet enema today for the obstipation and re-evaluate her in the morning. Ms. Acosta has a potential discharge tomorrow for rehab. cc: Malachi Birmingham MD [facility]
[2019-02-14] MEDS: HALDOL PO SCH (22:16)
[2019-02-14] MEDS: DEPAKOTE ER PO SCH (22:16)
[2019-02-14] MEDS: DESYREL PO SCH (22:17)
[2019-02-15] MEDS: COLACE PO SCH ×3 (00:58→22:09)
[2019-02-15] MEDS: MIRALAX PO SCH ×3 (00:59→22:10)
[2019-02-15] MEDS: SYNTHROID PO SCH ×2 (05:30→06:19)
[2019-02-15 06:45] LABS: BASO# 0.04 X1000 (0.0-0.2); BASO% 0.4 % (0.0-0.8); EOS% 5.4 % (0.0-10.0); HEMATOCRIT 36.6 % (37.0-47.0); HEMOGLOBIN 11.3 g/dL (12.0-16.0); IMM GRAN# 0.19 X1000 (0.0-0.04); IMM GRAN% 2.1 % (0.0-0.5); LYMPH# 1.75 X1000 (1.2-3.4); LYMPH% 18.9 % (20.5-51.1); MCHC 30.9 g/dL (33-37); MCV 87.6 FL (81-99); MONO# 1.06 X1000 (0.11-0.59); MONO% 11.4 % (1.7-9.3); MPV 9.4 FL (7.4-10.4); NEUT# 5.72 X1000 (1.4-6.5); NEUT% 61.8 % (42.2-75.2); PLT 240 X1000 (130-400); RBC 4.18 XMIL (4.2-5.4); RDW 13.7 % (11.5-14.5); WBC 9.26 X1000 (4.8-10.8)
[2019-02-15 07:14] LABS: ALBUMIN 3.5 g/dL (3.5-5.0); CALCIUM 8.5 mg/dL (8.8-10.2); CREATININE 3.3 mg/dL (0.5-0.9); PHOSPHORUS 4.7 mg/dL (2.7-4.5); POTASSIUM 4.3 mmol/L (3.5-5.1)
[2019-02-15] MEDS: VESICARE PO SCH (09:10)
[2019-02-15] MEDS: ROBAXIN PO SCH ×2 (09:10→22:10)
--- NOTE | 2019-02-15 16:32 | PROGRESS NOTE ---
DATE: 02/15/2019 SUBJECTIVE: Patient this morning refers to be doing fairly okay. Two friends were at the bedside at the time of the encounter who expressed multiple concerns about Ms. Acosta being able to take care of herself at home. We understand that Ms. Acosta does not have any social support. OBJECTIVE: Vital signs: Blood pressure is 136/65, pulse of 82, respiration is 18, temperature 98.3 degrees. Patient was saturating 98%. General: Ms. Acosta is a 63-year-old, elderly female, morbidly obese with a BMI of 50.4. She is in bed, no distress. HEENT: Mucosa is pink and moist. Anicteric. Acyanotic. Neck: Supple. Chest: Good air entry bilateral. There were no crepitations. No rhonchi. There was no accessory muscle use. Cardiovascular: Regular rate and rhythm. No murmurs. No rubs. No gallops. GI: Abdomen is soft. It is distended. Bowel sounds are present. There is a very large left- sided ventral hernia defect. WORK TICKET DISTRIBUTOR: The patient is awake, alert, and oriented. There is no focal neurological deficit. LABORATORY DATA: CBC is reviewed. The patient has mild normocytic anemia. Chemistry is also reviewed. Creatinine is slightly up to 3.5. The rest of the chemistry for most part is unremarkable. The patient's I's and O's, she continues to make adequate bowel movements, 4 documented today. ASSESSMENT: 1. 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 2. Generalized weakness and deconditioning. Patient is getting physical therapy. It appears she continues to be improving. 3. Chronic kidney disease stage 4 to 5. Nephrology is on board. Electrolytes seem to be within normal ranges. 4. Chronic constipation with fecal impaction. The patient continues to be on bowel regimen. We will get a KUB tomorrow morning. 5. Critical hyperkalemia on presentation, improved. 6. History of schizoaffective and paranoid schizophrenia. Patient is on antipsychotics. 7. Large abdominal ventral wall hernia, noted. 8. Iron deficiency anemia. We will continue replacement. 9. Cardiac arrhythmia. The patient seems to have pauses occasionally and second-degree AV block. She has been evaluated by Cardiology in the past. Disposition. I understand Ms. Acosta lives by herself. She seems to be doing a lot better with physical therapy. We are going to be waiting on social work arrangements for adequate disposition. cc: Malachi Birmingham MD [facility]
--- NOTE | 2019-02-15 19:40 | NEPHROLOGY PROGRESS NOTE ---
DATE: 02/15/2019 TIME SEEN: 0720. SUBJECTIVE: Ms. Acosta is resting quietly in bed. She states that she is feeling a little bit better. Thinks that she may be ready for discharge in the next several days, though unsure if she can take care of herself at home. OBJECTIVE: Her most recent vital signs: Temperature is 97.3 degrees, blood pressure 149/90, heart rate 102, respirations 22. She is on room air. Last recorded saturation 95%. She has had 2930 in. She has had 0 recorded out, though patient states that she has been voiding. LABS: Sodium 140, potassium 4.3, chloride 105, CO2 20, BUN 45, creatinine 3.3. The patient's glucose is 179. Anion gap of 15, calcium 8.5, phosphorus 4.7, albumin 3.5. White count 9.26, hemoglobin 11.3, hematocrit 36.6, with a platelet count of 240,000. PHYSICAL EXAMINATION: General: Ms. Acosta is a 63-year-old white female who is resting quietly in bed. She appears in no acute distress, though she appears chronically ill. Skin: Warm and dry. HEENT: Normocephalic, atraumatic. Conjunctiva is pale pink. She has NELY. Mucous membranes are moist. Neck: Supple. Trachea midline. No evidence of JVD. Cardiovascular: She is regular rate and rhythm without murmur or gallop. Abdomen: Large, obese, soft, nontender. Positive bowel sounds. She has a slight protruding hernia, mid abdominal wall. Genitourinary: Not inspected. Patient is voiding. Extremities: Has 1+ lower extremity edema. No clubbing or cyanosis. Integumentary: Chronic venous stasis is present. No rashes or lesions. Neurological: She is alert and oriented x3. ASSESSMENT AND PLAN: 1. Chronic kidney disease stage 4 or 5, secondary to previous lithium use. The patient remains at her historical baseline of a creatinine of 2.7 to 3.3; creatinine 3.3 today. She has had adequate urine output documented. We have requested that they keep a more strict input/output. 2. 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 She continues to compensate for her hydration of approximately 2 to 3 L fluid replacement. 3. Electrolytes, acid-base balance. These are acceptable. 4. Anemia. This is acceptable. 5. Deconditioning. Primary Care is aware. She is receiving physical therapy with plans. 6. We will follow up in our office within 2 to 3 weeks after discharge. I would like to thank you for allowing us to follow with this patient. Dictated by ALBERT Baxter for Dusty Long MD Face to face encounter, data reviewed, discussed with Morenita Myles on 02/15/19. I agree with the above assessment and plan of care. cc: ALBERT Baxter MD [facility]
[2019-02-15] MEDS: DEPAKOTE ER PO SCH (22:09)
[2019-02-15] MEDS: DESYREL PO SCH (22:09)
[2019-02-15] MEDS: HALDOL PO SCH (22:09)
[2019-02-16] MEDS: SYNTHROID PO SCH (06:41)
--- NOTE | 2019-02-16 07:38 | Diag Imaging Result Doc PS360 ---
EXAM: KUB ABDOMEN 02/16/2019 HISTORY: SBO TECHNIQUE: KUB COMMENT: Compared to 02/14/2019 there is apparently less stool in the rectum although the rectum is not as well demonstrated due to technical factors. There is no evidence of gastric or small bowel dilatation. No evidence organomegaly or mass is present. IMPRESSION: Slightly improved constipation. Electronically signed by Tyshawn Wise 02/16/2019 7:36 AM
[2019-02-16 07:43] LABS: CREATININE 3.1 mg/dL (0.5-0.9); POTASSIUM 4.6 mmol/L (3.5-5.1)
[2019-02-16 07:44] LABS: ALBUMIN 3.5 g/dL (3.5-5.0); CALCIUM 8.7 mg/dL (8.8-10.2); PHOSPHORUS 4.7 mg/dL (2.7-4.5)
[2019-02-16] MEDS: VESICARE PO SCH (09:14)
[2019-02-16] MEDS: ROBAXIN PO SCH ×2 (09:14→21:27)
[2019-02-16] MEDS: COLACE PO SCH ×2 (09:15→21:27)
[2019-02-16] MEDS: MIRALAX PO SCH ×2 (09:18→21:27)
--- NOTE | 2019-02-16 10:44 | NEPHROLOGY PROGRESS NOTE ---
DATE: 02/16/2019 TIME SEEN: 0740. SUBJECTIVE: Ms. Acosta is resting quietly in bed. She has no complaints. She states that she is feeling fine. She had a good night sleep. LABORATORY DATA: Sodium is 144, potassium 4.6, chloride 108, CO2 of 22, BUN 47, creatinine 3.1, glucose is 117. She has an anion gap of 14. Her calcium is 8.7. Her phosphorus is 4.7, with an albumin of 3.5. Previous hemoglobin of 11.3. OBJECTIVE: Most Recent Vital Signs: Temperature is 97.7 degrees, blood pressure 124/86, heart rate 85, respirations 16. She is on room air. Last recorded saturation is 98%. She has had 700 in, 650 out to Jessica catheter. General: This is a 63-year-old white female, resting quietly in bed. She appears chronically ill, in no acute distress. Skin: Warm and dry. HEENT: Normocephalic, atraumatic. Conjunctiva is pale, pink. She has NELY. Mucous membranes are dry. Neck: Supple. Trachea midline. No evidence of JVD. Cardiovascular: Regular rate and rhythm. She is without murmur or gallop. Lungs: Clear to auscultation bilaterally. Equal excursion on room air. Abdomen: Large, obese, soft, nontender. Positive bowel sounds. Slight protruding hernia on midabdominal wall. Genitourinary: Not inspected. The patient is voiding adequate amount. Extremities: Continues with trace to 1+ lower extremity edema, mostly pretibial. Integumentary: Chronic venous stasis is present. No rashes or lesions. Neurological: Alert and oriented x3. ASSESSMENT AND PLAN: 1. Chronic kidney disease stage 4 to 5 secondary to lithium use. The patient's BUN and creatinine have remained stable over the last 72 hours. Adequate urine output is documented. No indications for intervention. 2. Diabetes insipidus. The patient has polyuria. 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 She continues to hydrate well and compensate. 3. Electrolytes, acid-base balance, and anemia. These are all acceptable. 4. Deconditioning. Primary care is aware and working on possible placement for discharge. I would like to thank you for allowing us to follow with this patient. Dictated by ALBERT Baxter for Dusty Long MD Face to face encounter, data reviewed, discussed with Morenita Myles on 02/16/19. I agree with the above assessment and plan of care. cc: ALBERT Baxter MD [facility]
--- NOTE | 2019-02-16 16:11 | PROGRESS NOTE ---
DATE: 02/16/2019 SUBJECTIVE: This morning, Ms tafoya refers to be doing fairly okay. No new complaint. We are still awaiting for placement. OBJECTIVE: Vital signs: Blood pressure is 124/73, pulse of 80, respirations 18, temperature 98.5 degrees, the patient is saturating 95% on room air. On general exam, Ms tafoya is a 63-year-old morbidly obese, female. She was in bed. No distress. Mucosa is pink and moist. Anicteric. Acyanotic. Neck is supple. Chest was clear to auscultation. No crepitations. No rhonchi. Cardiovascular: Regular rate and rhythm. Abdomen: Soft, distended, nontender. There is an very large left side ventral hernia defect noted. Central Nervous System: Patient is awake, alert, and oriented. LABORATORY DATA: Creatinine is down to 3.1, BUN is slightly elevated 47. ASSESSMENT: 1. 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 2. Chronic kidney disease, stage 4 to 5. 3. Chronic constipation with fecal impaction. Patient is on bowel regimen. 4. Critical hyperkalemia on presentation, resolved. 5. Large abdominal ventral wall hernia. Noted. 6. Iron deficiency anemia. We will continue replacement. 7. Cardiac arrhythmia. The patient has been evaluated by Cardiology. 8. History of schizoaffective and paranoid schizophrenia. We will continue with patient's antipsychotics. 9. Generalized weakness and deconditioning. Patient is receiving physical therapy, and she seems to be doing well. She was able to do 720 with full weightbearing. In general, I think Ms Tafoya is a potential discharge tomorrow once we have a safe arrangement from Social Work. cc: Malachi Birmingham MD
[2019-02-16] MEDS: TYLENOL PO PRN (16:58)
[2019-02-16] MEDS: DEPAKOTE ER PO SCH (21:27)
[2019-02-16] MEDS: DESYREL PO SCH (21:27)
[2019-02-16] MEDS: HALDOL PO SCH (21:27)
[2019-02-17] MEDS: TYLENOL PO PRN (00:06)
[2019-02-17] MEDS: SYNTHROID PO SCH (06:08)
[2019-02-17 06:27] LABS: CREATININE 3.3 mg/dL (0.5-0.9); POTASSIUM 4.8 mmol/L (3.5-5.1)
[2019-02-17 06:28] LABS: ALBUMIN 3.4 g/dL (3.5-5.0); CALCIUM 8.5 mg/dL (8.8-10.2); PHOSPHORUS 4.9 mg/dL (2.7-4.5)
--- NOTE | 2019-02-17 09:01 | NEPHROLOGY PROGRESS NOTE ---
DATE: 02/17/2019 DATE AND TIME SEEN: On 02/17/2019 at 0705 hours. SUBJECTIVE: Ms. Acosta is resting quietly in bed. States that she is feeling well. She is waiting for discharge. OBJECTIVE: Her most recent vital signs, temperature 98.4 degrees, blood pressure 144/89, heart rate 91, respirations 16. She is on room air, last recorded saturation 100%. She has had 1825 input. She has been voiding, but this is not recorded. LABORATORY DATA: Sodium 143, potassium 4.8, chloride 110, CO2 of 22, BUN 53, creatinine 3.3, glucose 164. Her anion gap is 11. Her calcium is 8.5, phosphorus 4.9, albumin 3.4 with a previous hemoglobin of 11.3. PHYSICAL EXAMINATION: General: This is a 63-year-old white female resting quietly in bed. She appears chronically ill, though no acute distress. Skin: Warm and dry. HEENT: Normocephalic, atraumatic. Conjunctiva is pale. She has NELY. Mucous membranes are dry. Neck: Supple. Trachea midline. Unable to determine JVD this a.m. due to positioning. Cardiovascular: She is regular rate and rhythm. She is without murmur or gallop. Lungs: Clear to auscultation bilaterally. Equal excursion on room air. Abdomen: Large, obese, soft, nontender. Positive bowel sounds. Slight protuberance of hernia to the mid abdominal wall. Genitourinary: Not inspected. Patient has been voiding. Requested to keep strict input and output. Extremities: Continues with trace to 1+ lower extremity edema. Integumentary: Chronic venous stasis is present. No rashes or lesions. Neurologic: Alert and oriented x3. ASSESSMENT AND PLAN: 1. Chronic kidney disease stage 4 or 5. The patient's BUN and creatinine have remained stable over the last 72 hours. No indications for changes. Requested to keep strict input and output. 2. Diabetes insipidus. 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 She has been able to keep equal on her intake and output. 3. Electrolytes, acid-base balance and anemia. These are all acceptable. 4. Deconditioning. The patient is looking forward for discharge with possible placement in a rehabilitation. I would like to thank you for allowing us to follow with this patient. Dictated by ALBERT Baxter for Dusty Long MD Face to face encounter, data reviewed, discussed with Morenita Myles on 02/17/19. I agree with the above assessment and plan of care. cc: ALBERT Baxter MD [facility]
[2019-02-17] MEDS: MIRALAX PO SCH (09:49)
[2019-02-17] MEDS: VESICARE PO SCH (09:49)
[2019-02-17] MEDS: ROBAXIN PO SCH (09:49)
[2019-02-17] MEDS: COLACE PO SCH (09:49)
[2019-02-17 13:13] VITALS: BP 140/93
--- NOTE | 2019-02-18 07:54 | DISCHARGE SUMMARY ---
ADMISSION DATE: 02/04/2019 DISCHARGE DATE: 02/17/2019 DISPOSITION: Home. FOLLOW UP: 1. Dr. Long. 2. Dr. Osei. CONSULTATION DURING ADMISSION: 1. Nephrology was consulted. Patient was seen by Dr. Long. 2. Cardiology was consulted. Patient was seen by Dr. Osei. INVASIVE PROCEDURES DONE DURING ADMISSION: None. IMAGING STUDIES OF SIGNIFICANCE: 1. A chest x-ray was negative. 2. Multiple KUB's only showed constipation. The latest was done on 02/16/2019 which shows some slight improved constipation. 3. An echocardiogram showed an ejection fraction of 65% with normal left ventricle cavity size. ADMISSION DIAGNOSES: 1. Generalized weakness. 2. Hyperkalemia. 3. Chronic kidney disease stage 5. 4. Schizoaffective disorder. 5. Hypothyroid. DIAGNOSES AT TIME OF DISCHARGE: 1. 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 2. Chronic kidney disease stage 4 to 5. 3. Chronic constipation with fecal impaction improved. 4. Critical hyperkalemia on presentation resolved. 5. Large abdominal ventral wall hernia. 6. Iron deficiency anemia. The patient had received Venofer infusions. 7. Cardiac arrhythmia. (A 3 second pulse on telemonitoring and occasional second-degree heart block that was picked up on EKG. Patient was evaluated by Cardiology.) 8. History of schizoaffective and paranoid schizophrenia. 9. Generalized weakness and deconditioning. Patient was evaluated by PT. DISCHARGE MEDICATIONS: 1. Buspirone 10 mg p.o. daily. 2. Depakote 1000 mg p.o. at bedtime. 3. Haldol 2.5 p.o. daily. 4. Trazodone 150 p.o. at bedtime. 5. Robaxin 500 b.i.d. 6. Levothyroxine 100 mcg p.o. daily. 7. VESIcare 5 mg p.o. daily. 8. Colace 100 mg b.i.d. 9. MiraLAX 17 gram p.o. b.i.d. PRESENTING COMPLAINT: Inability to stand and weakness. HISTORY OF PRESENTING COMPLAINT: Ms. Acosta is a 63-year-old female with a history of CKD stage 4, hypothyroid, and bipolar disorder as well as schizoaffective disorder. The patient was found by friends who alleged that she had been sitting in the same position for about 3 days, and by the time they found her she had a lot of fecal material and urine on herself. She was sitting in her own urine and fecal material. The patient was brought to the Emergency Room where she was initially evaluated, and was found to have critical hyperkalemia with a potassium level of 5.3 and went up to 5.9 that gradually got better. The patient was also found to have some abnormalities on her telemetry monitoring. She was consulted by Cardiology. Patient was seen by Dr. Osei. Multiple EKGs as well as echocardiograms were done which were unremarkable. Patient was asymptomatic. During the hospital course, Ms. Acosta was also seen by Nephrology because of her longstanding kidney abnormality. She was also noted to have extreme polyuria. At one point, she was making 8000 L of urine a day. A urinalysis was done, and everything came back positive for nephrogenic DI, which we theorized was due to lithium therapy in the past. Ms. Acosta improved during the hospital course. The later part of the hospital stay was complicated because of her generalized weakness. Physical Therapy worked very insidiously with her, and she did improve on her gait and on her ability to ambulate. Yesterday, she was able to ambulate 720 feet with physical therapy. We think she is now back to her baseline. There were multiple attempts to try and place Ms. Acosta in the physical therapy department. However, because she does not have any insurance that was not possible. She cannot also have home health because of the same situation. Social workers have notified R, and there is the hope that she would get frequent visits so that somebody could be checking on her. Friends were also talked to, and they promised to be following up with her. All the discharge instructions have been discussed with Ms. Acosta. At one point, she did say she wants to go home for a day, and she will make arrangements to [facility]. TIME SPENT FOR DISCHARGE: 38 minutes. cc: MD Donovan Parks MD Reginald D. Gladish, MD [facility]
== END 2019-02-17 14:50 | disposition home or self-care (01) | DRG 641 ==
LOC: P.ED 10:54 → SUATTDRO 14:35 → P.MEDSURG 14:35 → ICU 02-05 14:56 → 3S 02-05 23:13 → 4N 02-12 02:21
PROVIDERS: ATTEND Internal Medicine

== ENCOUNTER 2019-02-18 15:23 | Inpatient (IN) ==
[2019-02-18 16:21] LABS: BASO# 0.02 X1000 (0.0-0.2); BASO% 0.2 % (0.0-0.8); EOS# 0.04 X1000 (0.0-0.7); EOS% 0.4 % (0.0-10.0); HEMATOCRIT 36.6 % (37.0-47.0); HEMOGLOBIN 11.6 g/dL (12.0-16.0); IMM GRAN# 0.12 X1000 (0.0-0.04); IMM GRAN% 1.1 % (0.0-0.5); LYMPH# 0.96 X1000 (1.2-3.4); LYMPH% 9.2 % (20.5-51.1); MCH 27.5 PG (27-31); MCHC 31.7 g/dL (33-37); MCV 86.7 FL (81-99); MONO# 1.36 X1000 (0.11-0.59); MPV 9.1 FL (7.4-10.4); NEUT# 7.97 X1000 (1.4-6.5); NEUT% 76.1 % (42.2-75.2); PLT 249 X1000 (130-400); RBC 4.22 XMIL (4.2-5.4); RDW 14.2 % (11.5-14.5); WBC 10.47 X1000 (4.8-10.8)
[2019-02-18 16:29] LABS: ALBUMIN 3.7 g/dL (3.5-5.0); CALCIUM 8.3 mg/dL (8.8-10.2); CREATININE 3.1 mg/dL (0.5-0.9); MAGNESIUM 2.7 mg/dL (1.5-2.7); POTASSIUM 4.6 mmol/L (3.5-5.1); TOTAL BILIRUBIN 0.2 mg/dL (0.20-1.00); TOTAL PROTEIN 6.6 g/dL (6.3-8.3)
[2019-02-18 16:36] LABS: BILIRUBIN URINE NEGATIVE (NEGATIVE); BLOOD URINE 3+ (NEGATIVE); CLARITY CLEAR (CLEAR); COLOR YELLOW; KETONE URINE NEGATIVE (NEGATIVE); LEUKOCYTES URINE NEGATIVE (NEGATIVE); NITRITE URINE NEGATIVE (NEGATIVE); PH URINE 6.5; PROTEIN URINE TRACE mg/dL (NEGATIVE); SP GRAVITY URINE 1.005; UROBILINOGEN URINE NORMAL
[2019-02-18 16:39] LABS: URINE BACTERIA 1+ /HFP; URINE CAST NONE SEEN /LPF; URINE CRYSTAL NONE SEEN /HPF; URINE EPITHELIAL CELLS <10 /HPF (<10); URINE RBC <10 /HPF (<10); URINE SOURCE CATH; URINE WBC <10 /HPF (<10); URINE YEAST NONE SEEN /HPF
[2019-02-18 16:54] LABS: CK INDEX 1.4 (0.0-2.5); CK-MB 3.05 ng/mL (0.0-5.0)
[2019-02-18] MEDS ORDERED: ZOFRAN IV ONE (17:01)
[2019-02-18] MEDS ORDERED: ATIVAN IV ONE (17:01)
--- NOTE | 2019-02-18 17:09 | PROVIDER DOCUMENTATION ---
This chart was entered by Lucie Pratt Scribe, acting as scribe for Gibran Helton MD. HPI-General Adult - General Chief Complaint: Fall Stated Complaint: FALL Time Seen by Provider: 02/18/19 15:26 Source: patient, family, EMS ([facility]) Allergies/Adverse Reactions: Patient Allergies Allergy/AdvReac Type Severity Reaction Status Date / Time No Known Allergies Allergy Verified 02/04/19 11:10 Home Medications: Home Medication List Medication Instructions Recorded Confirmed Last Taken Type Buspirone HCl 10 mg PO DAILY 01/28/19 02/18/19 Unknown History Divalproex E.r. [Depakote ER] 1,000 mg PO QHS 01/28/19 02/18/19 Unknown History Haloperidol 5 mg PO QHS 01/28/19 02/18/19 Unknown History Haloperidol [Haldol] 2.5 mg PO DAILY 01/28/19 02/18/19 Unknown History Trazodone [Desyrel] 150 mg PO QHS 01/28/19 02/18/19 Unknown History Docusate Sodium [Colace] 100 mg PO BID #60 cap 02/17/19 02/18/19 Unknown Rx Levothyroxine [Synthroid] 100 microgm PO DAILY@0700 #120 tab 02/17/19 02/18/19 Unknown Rx Methocarbamol [Robaxin] 500 mg PO BID #30 tab 02/17/19 02/18/19 Unknown Rx Polyethylene Glycol 3350 [Miralax] 17 gm PO BID #30 powder, packet 02/17/19 02/18/19 Unknown Rx Solifenacin [Vesicare] 5 mg PO DAILY #30 tab 02/17/19 02/18/19 Unknown Rx - History of Present Illness -Gen Adult Nature of Presenting Problems: 63 yowf presents to the ed with same complaint that pt was seen on 02/04/19 and pt was dc from same visit/admit on 02/17/19. pt sts fell last night and unable to care for herself. pt struggles with ADl and has been incontinent of urine and feces. pt st last night she woke up at 1200am and was going to the bathroom and fell and could not get herself out of the floor and laid in her feces and urine for 14 hours at least. pt is morbidly obese and has true mobility issues. pt lives alone and ems sts home is is disarray and has litter and human waste all throughout. pt on exam is lying in bed and can move BUE and BLE but sts can not pick herself up from the floor when she falls Location of Pain/Injury: reports: generalized (weakness and bodyaches) Quality of Pain: reports: aching Severity: reports: moderate Onset/Duration: reports: this morning (1200am) Timing: reports: still present Context/Activities at Onset: reports: light activity Modifying Factors: improves with: nothing Associated Symptoms: reports: diarrhea, weakness, trouble walking. denies: back/neck pain, chest pain, fever/chills, headaches, nausea, seizure, shortness of breath, vomiting Similar Symptoms Previously?: Yes Recently seen or treated by another doctor?: Yes (was admitted 02/04/19) Review of Systems - Adult - REVIEW OF SYSTEMS - ADULT Constitutional: reports: no symptoms reported Eyes: denies: blurred vision, double vision Ears, Nose, Mouth & Throat: reports: no symptoms reported Cardiovascular: denies: chest pain, palpitations, syncope Respiratory: denies: shortness of breath, wheezing Gastrointestinal: reports: see HPI, diarrhea. denies: nausea, vomiting Genitourinary: reports: frequency, incontinence (BM and urine) Musculoskeletal: reports: see HPI, muscle weakness Integumentary: reports: no symptoms reported Neurological: denies: dizziness/vertigo, headache/migraines Psychiatric: reports: no symptoms reported Endocrine: reports: no symptoms reported Hematologic/Lymphatic: reports: no symptoms reported Allergic/Immunologic: reports: no symptoms reported All Other Systems: Reviewed and Negative Past History - Adult - PAST MEDICAL HISTORY-ADULT Review of Records: reports: Old Records Reviewed, Nursing Assessment Review, Medications Reviewed, Social history reviewed & non-contributory. Major Childhood Illnesses: reports: denies history Cardiovascular: reports: denies history Respiratory: reports: denies history Gastrointestinal: reports: denies history Obstetrical/Gynecological: reports: denies history Genitourinary: reports: ESRD (stage 4), incontinence, chronic UTI's Musculoskeletal: reports: denies history Neurological: reports: denies history Psychiatric: reports: depression, schizophrenia Endocrine/Immune: reports: Diabetes, thyroid disorder, other (CKD) Diabetes Type: Type 2 Other Conditions: reports: denies history - PRIOR SURGERIES/PROCEDURES Surgical/Procedure History: reports: BTL, tonsillectomy - IMMUNIZATION STATUS Childhood Immunizations: See Nurse Assessment Flu Vaccine: See Nurse Assessment - FAMILY HISTORY Family History: reviewed, not pertinent - SOCIAL HISTORY Smoking: cigarettes, greater than 1 pack/day Provider spent 3-5 mins advising pt. on dangers of tobacco.: Discussed manners to quit use, and f/u contacts for add'l counseling. Substance Use: denies Alcohol Use Frequency: never Living Situation: alone Physical Exam-General - PHYSICAL EXAM-ADULT Initial Vital Signs Reviewed: Yes - CONSTITUTIONAL General Appearance: alert, mild distress, obese - EYES Eyes: PERRL/EOMI, pink conjunctivae - HEAD, EARS, NOSE, MOUTH & THROAT HENMT: moist mucous membranes, normal ENT inspection - NECK Neck: non-tender, full range of motion, supple, normal inspection - RESPIRATORY Respiratory: chest non-tender, lungs clear, normal breath sounds - CARDIOVASCULAR Cardiovascular: normal peripheral pulses, regular rate, rhythm - GASTROINTESTINAL (ABDOMEN) Abdominal Exam: normal bowel sounds, soft - LYMPHATIC Lymphatic: no adenopathy - MUSCULOSKELETAL Back Exam: other (pt lying in bed and unable to do back exam) Extremity: normal capillary refill, pedal edema, other (weakness) - SKIN Integumentary: normal color, normal turgor, warm/dry - NEUROLOGIC Neurologic: grossly normal - PSYCHIATRIC Psych/Mental Status: normal mood/affect, normal thought content, normal thought process, oriented x 3 Progress - PLAN OF CARE/RESULTS Progress/Plan/Lab Results: Vital Signs - 8 hr 02/18/19 15:08 Temperature 97.8 F Pulse Rate 79 Respiratory Rate 16 Blood Pressure 121/064 O2 Sat by Pulse Oximetry 97 Orders Category Date Time Status Finger Stick Blood Sugar (ED) DIRECTED Care 02/18/19 15:19 Active Jessica Cath Insertion ORDERED Care 02/18/19 15:19 Active Saline Loc NOW Care 02/18/19 15:19 Active CBC WITH ELECTRONIC DIFF [HEME] Stat Lab 02/18/19 15:19 Uncollected CK PROFILE [SP CHEM] Stat Lab 02/18/19 15:49 Uncollected COMPREHENSIVE METABOLIC PANEL [CHEM] Stat Lab 02/18/19 15:19 Uncollected MAGNESIUM [CHEM] Stat Lab 02/18/19 15:19 Uncollected UA NIMS W/REFLEX CULT PL [URINALYSIS] Stat Lab 02/18/19 15:19 Uncollected Result Diagrams: 02/18/19 15:50 02/18/19 15:50 - REASSESSMENT Reassessment #1 Time Reassessed: 17:09 Status: unchanged (REMAINS STABLE IN ER. NO FOCAL DEFICITS. DISCUSSED WITH H OSPITALIST WILL SEE IN ER AND DETERMINE DISPOSITION) Departure - Departure Date of Disposition Decision: 02/18/19 Time of Disposition Decision: 17:08 DIAGNOSIS: Generalized weakness Disposition: ADMITTED INPATIENT 09 Certified Medical Emergency: Emergent Condition: Stable - Critical Care Note This patient required my direct & personal management of CC.: No Attestation - Physician/ JS Attestation Patient care was provided by Advanced Practice Provider:: No The physician spent face to face time with patient:: Yes Advanced Practice Provider documentation review:: Supervising physician onsite and consulted in the evaluation and care of this patient. The physician did have a face to face encounter with the patient. This chart was documented by the indicated scribe, (Lucie Pratt Scribe) and accurately reflects the services I performed and decisions made by me, Gibran Helton MD, as attested by the provider's signature.
--- NOTE | 2019-02-18 20:40 | HISTORY AND PHYSICAL ---
ADDENDUM: Patient seen and examined by myself. Full note dictated and discussed with nurse practitioner. Patient presented to the hospital after being found at home covered in feces. Apparently she had been discharged yesterday from the hospital because she was unable to go to rehab due to her financial situation. Apparently after going home she had slipped and fallen. She had stayed on the floor all night until she was found this morning. Of important note by physical therapy, prior to discharge she was able to ambulate. Certainly expect that her psychiatric issues have lots to do with her mobility. We will admit her to the hospital. We will ask Machine Straw Hat Presser and DHR for involvement. Her kidney function is at her baseline stage 4-5. cc: Mckay Bernardo MD
--- NOTE | 2019-02-18 21:04 | HISTORY AND PHYSICAL ---
PRIMARY CARE PROVIDER: None. CHIEF COMPLAINT: Fall. HISTORY OF PRESENT ILLNESS: Ms. Acosta is a 63-year-old, female, who is well known to our service, who was just discharged on 02/17/2019, from [facility]. Her presenting complaint at that time was inability to stand and weakness. 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 She was evaluated by PT and worked with them. Unfortunately, secondary to no insurance, she was not able to be discharged to rehab. She was able to walk up to 620 feet. Social workers notified DHR in hopes that she would get more frequent home visits. Friends promised to follow up with her after discharge. She states she went home, she was sitting down, and when she got up around midnight to go to the restroom, she had a fall and laid in the floor until a friend came and checked on her later this afternoon. She was brought in for generalized weakness. Her labs are essentially stable from her discharge yesterday. We will recheck a CPK profile in the a.m. to make sure there is no rhabdomyolysis. We will give her 1 L of fluid slowly overnight. Her creatinine function is at baseline. We will consult Physical Therapy as well as Tie In Hand, and get DHR involved. PAST MEDICAL HISTORY: 1. Chronic kidney disease stage 4 to 5. 2. Hypothyroidism. 3. Diabetes mellitus type 2. 4. Schizoaffective disorder, bipolar-type. 5. Paranoid schizophrenia. 6. Large abdominal ventral wall hernia. 7. Iron deficiency anemia. 8. Cardiac arrhythmia on last admission with occasional second-degree heart block that was picked up on EKG. The patient was evaluated by Cardiology. 9. Generalized weakness and deconditioning. PAST SURGICAL HISTORY: 1. ERCP with stent placement. 2. Tonsillectomy. 3. Tubal ligation. 4. Multiple mouth surgeries. SOCIAL HISTORY: She lives alone. She does have friends that live close by and assist her with getting meals and checking on her. ALLERGIES: No known drug allergies. HOME MEDICATIONS: 1. Buspirone 10 mg p.o. daily. 2. Depakote 1000 mg p.o. at bedtime. 3. Haldol 2.5 mg p.o. daily. 4. Trazodone 150 mg p.o. at bedtime. 5. Robaxin 500 mg p.o. b.i.d. 6. Levothyroxine 100 mcg p.o. daily. 7. VESIcare 5 mg p.o. daily. 8. Colace 100 mg p.o. b.i.d. 9. MiraLAX 17 g p.o. b.i.d. REVIEW OF SYSTEMS: A 12--point review of systems completed and negative, except for those mentioned in the HPI. PHYSICAL EXAMINATION: VITAL SIGNS: Temperature is 97.4 degrees, heart rate 91, respirations 20, blood pressure 130/65, O2 is 97% on room air. GENERAL: Ms. Acosta is a pleasant, 63-year-old, female, who is lying on the stretcher in no acute distress. HEENT: Atraumatic, normocephalic. PERRL. NECK: Supple. Trachea midline. CARDIOVASCULAR: S1, S2 appreciated. No murmurs, gallops, rubs noted. RESPIRATORY: Lung sounds clear bilaterally. GASTROINTESTINAL: Obese, soft, nontender, nondistended. Positive bowel sounds x4 quadrants. LOWER EXTREMITIES: No signs of clubbing or cyanosis. NEUROLOGIC: No focal deficits noted. DIAGNOSTIC DATA: None. LABORATORY DATA: White count 10, hemoglobin and hematocrit 11 and 36, platelet count is 249,000. Sodium 139, potassium 4.6, BUN 48, creatinine 3.1, blood glucose is 160, alkaline phosphatase 139. CK is 216. Urinalysis showed trace glucose, 3+ blood, and 1+ bacteria. Pending urine culture. ASSESSMENT AND PLAN: 1. Generalized weakness and deconditioning. The patient was found lying on the floor after 12 hours in her urine and feces. We will consult Physical Therapy as well as Tie In Hand, and possibly involve R. Continue to have her working with physical therapy here. However, upon her last discharge yesterday, she was walking up to 720 feet. 2. Chronic kidney disease stage 4 to 5. She is at her baseline. 3. Chronic constipation. Will continue bowel regimen. 4. Large abdominal wall ventral hernia. Aware. 5. Iron deficiency anemia. 6. Previous cardiac arrhythmia with 3-second pause on telemetry and occasional second-degree heart block that was picked up on EKG. She was evaluated by Cardiology on her last admission. They felt it was secondary to her electrolyte imbalances. Echocardiogram done at that time showed an EF of 65%. 7. History of schizoaffective and paranoid schizophrenia. Aware. Will continue home medications. 8. Further recommendations to follow physician evaluation, laboratory and diagnostic data. Dictated by ALBERT Simpson for Mckay Bernardo MD cc: MD Dusty Sanderson MD
[2019-02-18] MEDS ORDERED: NS 1,000 ML IV SCH (22:14)
[2019-02-18] MEDS: COLACE PO SCH (23:10)
[2019-02-18] MEDS: DESYREL PO SCH (23:10)
[2019-02-18] MEDS: DEPAKOTE ER PO SCH (23:16)
[2019-02-18] MEDS: MIRALAX PO SCH (23:17)
[2019-02-18] MEDS: HALDOL PO SCH (23:17)
[2019-02-18] MEDS: ROBAXIN PO SCH (23:24)
[2019-02-19] MEDS: ZOFRAN IV PRN (04:00)
[2019-02-19 05:53] LABS: BASO# 0.02 X1000 (0.0-0.2); BASO% 0.3 % (0.0-0.8); EOS# 0.12 X1000 (0.0-0.7); EOS% 1.7 % (0.0-10.0); HEMOGLOBIN 10.4 g/dL (12.0-16.0); IMM GRAN# 0.08 X1000 (0.0-0.04); IMM GRAN% 1.1 % (0.0-0.5); LYMPH# 1.01 X1000 (1.2-3.4); LYMPH% 14.2 % (20.5-51.1); MCH 26.8 PG (27-31); MCHC 30.6 g/dL (33-37); MCV 87.6 FL (81-99); MONO# 1.05 X1000 (0.11-0.59); MONO% 14.7 % (1.7-9.3); MPV 9.4 FL (7.4-10.4); NEUT# 4.85 X1000 (1.4-6.5); PLT 233 X1000 (130-400); RBC 3.88 XMIL (4.2-5.4); RDW 14.2 % (11.5-14.5); WBC 7.13 X1000 (4.8-10.8)
[2019-02-19] MEDS: SYNTHROID PO SCH (06:29)
[2019-02-19 06:33] LABS: ALBUMIN 3.1 g/dL (3.5-5.0); CREATININE 3.1 mg/dL (0.5-0.9); MAGNESIUM 2.7 mg/dL (1.5-2.7); POTASSIUM 4.4 mmol/L (3.5-5.1); TOTAL BILIRUBIN 0.2 mg/dL (0.20-1.00); TOTAL PROTEIN 5.8 g/dL (6.3-8.3)
[2019-02-19 06:58] LABS: CK INDEX 0.8 (0.0-2.5); CK-MB 1.67 ng/mL (0.0-5.0)
[2019-02-19] MEDS: VESICARE PO SCH (09:03)
[2019-02-19] MEDS: BUSPAR PO SCH (09:04)
[2019-02-19] MEDS: COLACE PO SCH ×2 (09:04→20:05)
[2019-02-19] MEDS: MIRALAX PO SCH ×2 (09:04→20:05)
[2019-02-19] MEDS: ROBAXIN PO SCH ×2 (09:04→20:05)
[2019-02-19] MEDS: HALDOL PO SCH ×2 (09:04→20:05)
--- NOTE | 2019-02-19 13:36 | Diag Imaging Result Doc PS360 ---
EXAM: ANKLE COMPLETE RIGHT HISTORY: right ankle pain, s/p fall TECHNIQUE: Three views COMPARISON: None. FINDINGS: There is a lucent lesion within the medial talus suspicious for and osteochondral defect. Additionally, there is sclerosis involving the posterior calcaneus which may indicate a healing stress fracture. There is a calcaneal spur. Ankle mortise is intact. There is generative arthropathy about the mid foot. No acute fracture about the ankle. IMPRESSION: 1.Posterior calcaneal sclerosis suspicious for healing stress fracture. 2.Lucent lesion within the talar dome which may represent an osteochondral chondral defect. 3.Calcaneal spur. 4.Mid foot osteoarthritis. Electronically signed by Shannon Damico 02/19/2019 1:34 PM
--- NOTE | 2019-02-19 17:16 | PROGRESS NOTE ---
DATE: 02/19/2019 SUBJECTIVE: Patient has no complaints. PHYSICAL EXAMINATION: Vital Signs: Reviewed. Temperature 97.4 degrees, pulse 103, respiratory rate 18, blood pressure 167/64. General: Patient is morbidly obese. She is in no distress. HEENT: Normocephalic. Neck: Supple. Cardiovascular: Regular rate. Chest: Clear, nonlabored. Abdomen: Soft, nondistended, obese. Extremities: Moves all extremities. Neurologic: No changes. ASSESSMENT: 1. Adult failure to thrive. I expect this is more due to her psychiatric illnesses than to other medical issues. 2. Fall. The patient was noted with physical therapy to walk without any issues prior to discharge from [facility]. Unsure of what caused her to remain on the floor all night. Of note, however, her CPK was completely normal, which would seem somewhat unusual if she had laid on the hard kitchen floor for 12+ hours. 3. Chronic kidney failure stage 5. 4. Hypothyroidism. 5. Diabetes. 6. Schizoaffective disorder. 7. Paranoid schizophrenia. 8. Large abdominal wall ventral hernia. PLAN: We will continue patient in the hospital. We will ask Blending Machine Operator to notify [facility]. I certainly do not feel as though the patient will be able to return home as she cannot care for herself. We will keep her in the hospital for now. We will follow and await R's input. cc: Mckay Bernardo MD
[2019-02-19] MEDS: DESYREL PO SCH (20:05)
[2019-02-19] MEDS: DEPAKOTE ER PO SCH (20:05)
[2019-02-20] MEDS: SYNTHROID PO SCH (06:13)
[2019-02-20] MEDS: BUSPAR PO SCH (08:52)
[2019-02-20] MEDS: VESICARE PO SCH (08:52)
[2019-02-20] MEDS: ROBAXIN PO SCH ×2 (08:53→21:28)
[2019-02-20] MEDS: COLACE PO SCH ×2 (08:53→21:28)
[2019-02-20] MEDS: MIRALAX PO SCH ×2 (08:53→21:28)
[2019-02-20] MEDS: HALDOL PO SCH ×2 (08:53→21:29)
--- NOTE | 2019-02-20 17:17 | PROGRESS NOTE ---
DATE: 02/20/2019 SUBJECTIVE: Patient has no complaints notes she is feeling okay. PHYSICAL: Vital Signs: Reviewed. Temperature 98.7 degrees, pulse 87, respiratory 18, BP 129/60. General: The patient is morbidly obese. She is in no distress, lying flatly in the bed. Answers questions appropriately. HEENT: Normocephalic. Neck: Supple. Cardiovascular: Regular rate. No murmurs. Chest: Clear, nonlabored. Abdomen: Soft, obese, positive bowel sounds. Extremities: Moves all extremities. Neuro: No changes. ASSESSMENT: 1. Adult failure to thrive most likely secondary to her chronic psychiatric illness. 2. Generalized weakness. 3. Stage 4 to 5 kidney disease chronic and stable. 4. Large abdominal wall ventral hernia. 5. Schizoaffective disorder with paranoid schizophrenia. 6. Anemia of chronic disease. PLAN: We will continue patient in the hospital. Discussed with Tile And Marble Setter that DHR likely needs to be involved. The patient did not need to be medically back in the hospital. She can ambulate as noted by her previous physical therapy report. However she appears to simply refuse to do so. cc: Mckay Bernardo MD
[2019-02-20] MEDS: DESYREL PO SCH (21:27)
[2019-02-20] MEDS: DEPAKOTE ER PO SCH (21:27)
[2019-02-21] MEDS: SYNTHROID PO SCH (06:05)
[2019-02-21] MEDS: BUSPAR PO SCH (08:50)
[2019-02-21] MEDS: VESICARE PO SCH (08:50)
[2019-02-21] MEDS: COLACE PO SCH ×2 (08:50→20:19)
[2019-02-21] MEDS: HALDOL PO SCH ×2 (08:50→20:19)
[2019-02-21] MEDS: ROBAXIN PO SCH ×2 (08:50→20:19)
[2019-02-21] MEDS: MIRALAX PO SCH ×2 (08:51→20:20)
--- NOTE | 2019-02-21 10:14 | PROGRESS NOTE ---
DATE: 02/21/2019 SUBJECTIVE: The patient has no new complaints. PHYSICAL EXAMINATION: Vital Signs: Reviewed. Temp 98 degrees, pulse 84, respiratory rate 18, BP 121/76. General: The patient is morbidly obese, in no distress. HEENT: Normocephalic. Neck: Supple. Cardiovascular: Regular rate. Chest: Clear. Abdomen: Soft, nondistended. Extremities: Moves all extremities. ASSESSMENT: 1. Adult failure to thrive. 2. Paranoid schizophrenia with schizoaffective disorder. 3. Generalized weakness. 4. Chronic kidney disease stage 4 or 5. 5. Large abdominal wall ventral hernia. PLAN: Will continue the patient in the hospital until Entry Level Chemist and R can make further arrangements. Unfortunately, I expect that Ms. Acosta will simply return to the hospital if she is discharged home as she has just done. She does not appear capable of caring for herself at this point. cc: Mckay Bernardo MD
[2019-02-21] MEDS: DESYREL PO SCH (20:20)
[2019-02-21] MEDS: DEPAKOTE ER PO SCH (20:20)
[2019-02-22] MEDS: SYNTHROID PO SCH (06:02)
[2019-02-22] MEDS: BUSPAR PO SCH (10:25)
[2019-02-22] MEDS: VESICARE PO SCH (10:25)
[2019-02-22] MEDS: COLACE PO SCH ×2 (10:25→21:21)
[2019-02-22] MEDS: ROBAXIN PO SCH ×2 (10:25→21:22)
[2019-02-22] MEDS: MIRALAX PO SCH ×2 (10:25→21:22)
[2019-02-22] MEDS: HALDOL PO SCH ×2 (10:27→21:22)
--- NOTE | 2019-02-22 18:50 | PROGRESS NOTE ---
DATE: 02/22/2019 SUBJECTIVE: Patient has no complaints. Notes that she has not really been out of bed. OBJECTIVE: Vital signs: Temperature 98, pulse 107, respiratory rate 18, BP 112/70. General: Patient is awake, morbidly obese, no distress. HEENT: Normocephalic. Neck: Supple. Cardiovascular: Regular rate. Chest: Clear. Abdomen: Soft. Extremities: Moves all extremities. ASSESSMENT: 1. Adult failure to thrive. 2. Schizoaffective disorder, paranoid schizophrenia. 3. Chronic stage 4 to 5 renal failure. PLAN: We will continue patient in the hospital. Ask licensed master social worker for assistance in discharge planning cc: Mckay Bernardo MD MTDD
[2019-02-22] MEDS: DESYREL PO SCH (21:21)
[2019-02-22] MEDS: DEPAKOTE ER PO SCH (21:21)
[2019-02-23] MEDS: SYNTHROID PO SCH (06:22)
[2019-02-23] MEDS: COLACE PO SCH ×2 (09:16→20:34)
[2019-02-23] MEDS: BUSPAR PO SCH (09:16)
[2019-02-23] MEDS: VESICARE PO SCH (09:16)
[2019-02-23] MEDS: ROBAXIN PO SCH ×2 (09:16→20:35)
[2019-02-23] MEDS: MIRALAX PO SCH ×2 (09:17→20:35)
[2019-02-23] MEDS: HALDOL PO SCH ×2 (09:17→20:35)
[2019-02-23] MEDS: ZOFRAN IV PRN (16:47)
--- NOTE | 2019-02-23 18:46 | PROGRESS NOTE ---
DATE: 02/23/2019 SUBJECTIVE: Patient has no complaints. PHYSICAL: Vital Signs: Reviewed, temperature 98 degrees, pulse 92, respiratory 18, BP 110/54. General: Patient is morbidly obese female is currently in no respiratory distress. HEENT: Normocephalic. Neck: Supple. CV: Regular rate. Chest: Clear nonlabored. Abdomen: Soft, nondistended, obese. Extremities: Moves all extremities. ASSESSMENT: 1. Generalized adult failure to thrive with generalized weakness. 2. Chronic kidney disease stage 4-5. 3. Hypothyroidism. 4. Diabetes. 5. Schizoaffective disorder. 6. Paranoid schizophrenia. 7. Large abdominal ventral hernia. 8. Iron deficiency anemia. PLAN: Continue patient in the hospital, continue physical therapy. Charge Machine Operator willing to assist for discharge planning. cc: Mckay Bernardo MD
[2019-02-23] MEDS: DESYREL PO SCH (20:34)
[2019-02-23] MEDS: DEPAKOTE ER PO SCH (20:35)
[2019-02-24] MEDS: SYNTHROID PO SCH (06:11)
[2019-02-24] MEDS: MIRALAX PO SCH ×2 (10:56→20:11)
[2019-02-24] MEDS: HALDOL PO SCH ×2 (10:56→20:11)
[2019-02-24] MEDS: COLACE PO SCH ×2 (10:56→20:11)
[2019-02-24] MEDS: VESICARE PO SCH (10:57)
[2019-02-24] MEDS: BUSPAR PO SCH (10:57)
[2019-02-24] MEDS: ROBAXIN PO SCH ×2 (10:57→20:11)
[2019-02-24] MEDS: TYLENOL PO PRN (10:57)
--- NOTE | 2019-02-24 18:57 | PROGRESS NOTE ---
DATE: 02/24/2019 SUBJECTIVE: Patient has no new complaints. States she is still too tired to get out of bed. She did sit in the chair with assistance yesterday. OBJECTIVE: Temperature 97.9 degrees, pulse 86, respiratory 18, BP 116/75.General: Patient is in no distress. HEENT: Normocephalic. Neck: Supple. Cardiovascular: Regular rate. Chest: Clear. Abdomen: Soft. Extremities: Moves all extremities. ASSESSMENT: 1. Generalized weakness. 2. Adult failure to thrive. 3. Chronic kidney disease, stable. 4. Chronic constipation. 5. Large abdominal wall ventral hernia. 6. Schizophrenia, paranoid type. 7. Schizoaffective disorder. PLAN: We will continue patient in the hospital, continue physical therapy. Further orders as needed. cc: Mckay Bernardo MD
[2019-02-24] MEDS: DESYREL PO SCH (20:11)
[2019-02-24] MEDS: DEPAKOTE ER PO SCH (20:11)
[2019-02-25] MEDS: SYNTHROID PO SCH (06:22)
[2019-02-25] MEDS: HALDOL PO SCH ×2 (08:21→22:08)
[2019-02-25] MEDS: BUSPAR PO SCH (08:21)
[2019-02-25] MEDS: ROBAXIN PO SCH (08:22)
[2019-02-25] MEDS: VESICARE PO SCH (08:22)
[2019-02-25] MEDS: COLACE PO SCH ×2 (08:22→22:07)
[2019-02-25] MEDS: MIRALAX PO SCH ×2 (08:22→22:07)
--- NOTE | 2019-02-25 18:54 | PROGRESS NOTE ---
DATE: 02/25/2019 SUBJECTIVE: The patient has no new complaints, still notes that she is unable to get out of bed without assistance. PHYSICAL EXAMINATION: Vital Signs: Reviewed. Temperature 98 degrees, pulse 99, respiratory rate 18, BP 114/90. General: The patient is pleasant. She is in no distress. HEENT: Normocephalic. Neck: Supple. Cardiovascular: Regular rate. Chest: Clear. Abdomen: Soft. Extremities: Moves all extremities. Neurologic: No focal changes. ASSESSMENT: 1. Adult failure to thrive. Continue physical therapy. 2. Generalized weakness with deconditioning. 3. Chronic kidney disease stage 4-5. 4. Chronic constipation. 5. Iron deficiency. PLAN: We will continue the patient in the hospital. Continue to follow. We will continue to assist Insurance Office Manager as needed to find long-term placement. cc: Mckay Bernardo MD
[2019-02-25] MEDS: ZOFRAN IV PRN (19:25)
[2019-02-25] MEDS: DESYREL PO SCH (22:08)
[2019-02-25] MEDS: DEPAKOTE ER PO SCH (22:08)
[2019-02-26] MEDS: ROBAXIN PO SCH ×3 (03:42→20:28)
[2019-02-26] MEDS: SYNTHROID PO SCH (06:29)
[2019-02-26] MEDS: HALDOL PO SCH ×2 (08:53→20:28)
[2019-02-26] MEDS: VESICARE PO SCH (08:53)
[2019-02-26] MEDS: BUSPAR PO SCH (08:53)
[2019-02-26] MEDS: MIRALAX PO SCH ×2 (08:54→20:28)
[2019-02-26] MEDS: COLACE PO SCH ×2 (08:54→20:28)
[2019-02-26 09:13] LABS: HEMATOCRIT 36.6 % (37.0-47.0); HEMOGLOBIN 11.6 g/dL (12.0-16.0); MCH 27.4 PG (27-31); MCHC 31.7 g/dL (33-37); MCV 86.3 FL (81-99); MPV 9.3 FL (7.4-10.4); RBC 4.24 XMIL (4.2-5.4); RDW 13.8 % (11.5-14.5); WBC 7.15 X1000 (4.8-10.8)
[2019-02-26 09:22] LABS: ALBUMIN 3.4 g/dL (3.5-5.0); CALCIUM 8.4 mg/dL (8.8-10.2); CREATININE 3.3 mg/dL (0.5-0.9); POTASSIUM 4.2 mmol/L (3.5-5.1); TOTAL BILIRUBIN 0.2 mg/dL (0.20-1.00); TOTAL PROTEIN 6.4 g/dL (6.3-8.3)
[2019-02-26] MEDS: TYLENOL PO PRN (14:55)
[2019-02-26] MEDS: DESYREL PO SCH (20:28)
[2019-02-26] MEDS: DEPAKOTE ER PO SCH (20:28)
--- NOTE | 2019-02-26 22:13 | PROGRESS NOTE ---
DATE: 02/26/2019 SUBJECTIVE: Patient has no new complaints. She is lying in the bed. PHYSICAL EXAMINATION: Vital Signs: Reviewed. Temp 97 degrees, pulse 96, respiratory 18, BP 133/75. General: Patient is awake, alert, currently in no respiratory distress. She is morbidly obese, lying in the bed. HEENT: Normocephalic. Neck: Supple. Cardiovascular: Regular rate. Chest: Clear. Abdomen: Soft, obese, nondistended. Extremities: Moves all extremities. ASSESSMENT: 1. Morbid obesity. 2. Chronic kidney disease stage 4 to 5. 3. Hypothyroidism. 4. Diabetes. 5. Schizoaffective disorder. 6. Paranoid schizophrenia. 7. Adult failure to thrive. PLAN: We will continue patient in the hospital. Continue physical therapy and await R assistance in discharge. cc: Mckay Bernardo MD
[2019-02-27] MEDS: SYNTHROID PO SCH (06:10)
[2019-02-27] MEDS: BUSPAR PO SCH (09:48)
[2019-02-27] MEDS: ROBAXIN PO SCH ×2 (09:48→20:16)
[2019-02-27] MEDS: COLACE PO SCH ×2 (09:48→20:16)
[2019-02-27] MEDS: HALDOL PO SCH ×2 (09:48→20:16)
[2019-02-27] MEDS: MIRALAX PO SCH ×2 (09:51→20:16)
[2019-02-27] MEDS: VESICARE PO SCH (10:42)
[2019-02-27] MEDS ORDERED: ZOFRAN ODT PO PRN (11:17)
[2019-02-27] MEDS: PRILOSEC PO SCH (12:14)
[2019-02-27] MEDS: CARAFATE PO SCH ×2 (15:47)
--- NOTE | 2019-02-27 18:09 | PROGRESS NOTE ---
DATE: 02/27/2019 SUBJECTIVE: The patient notes that she is still tired and fatigued. Denies any fevers. States she is having some nausea. Thinks it is only related to her renal diet. Would like to have a regular diet. However, when questioned, she is having some nausea even when she does not eat the renal diet. PHYSICAL EXAMINATION: vital signs: Temperature 98, pulse 89, respiratory rate 18, BP 125/75. General: The patient is morbidly obese. She is in no distress. HEENT: Normocephalic. Neck: Supple. Cardiovascular: Regular rate. Chest: Clear. Abdomen: Soft, obese. Currently nondistended, nontender. Extremities: Moves all extremities. ASSESSMENT: 1. Nausea. Discussed with the patient it would be unlikely that a renal diet would cause her to be nauseated even when she was not eating. We are going to add Carafate, Prilosec. Discussed the importance of staying on a renal diet due to her stage V renal disease. 2. Paranoid schizophrenia. 3. Schizoaffective disorder. 4. Iron deficiency anemia, stable. 5. Others. PLAN: We will continue the patient in the hospital. Add Carafate and Prilosec. Continue to follow. cc: Mckay Bernardo MD
[2019-02-27] MEDS: DEPAKOTE ER PO SCH (20:15)
[2019-02-27] MEDS: DESYREL PO SCH (20:16)
[2019-02-28] MEDS: CARAFATE PO SCH ×5 (06:28→16:40)
[2019-02-28] MEDS: PRILOSEC PO SCH (06:28)
[2019-02-28] MEDS: SYNTHROID PO SCH (06:28)
[2019-02-28] MEDS: VESICARE PO SCH (09:30)
[2019-02-28] MEDS: MIRALAX PO SCH ×2 (09:31→20:35)
[2019-02-28] MEDS: HALDOL PO SCH ×2 (09:31→20:34)
[2019-02-28] MEDS: COLACE PO SCH ×2 (09:31→20:34)
[2019-02-28] MEDS: BUSPAR PO SCH (09:31)
[2019-02-28] MEDS: ROBAXIN PO SCH ×2 (09:31→20:34)
--- NOTE | 2019-02-28 15:35 | PROGRESS NOTE ---
DATE: 02/28/2019 SUBJECTIVE: Patient has no new complaints. States she is still tired and fatigued. Has difficulty getting out of bed without assistance. PHYSICAL EXAMINATION: Vital Signs: Reviewed. Temperature 98.4 degrees, pulse 93, respiratory rate 18, BP 127/79. General: Patient is awake, alert. She is in no respiratory distress. HEENT: Normocephalic. Neck: Supple. Cardiovascular: Regular rate. Chest: Clear, nonlabored. Abdomen: Soft, obese, nondistended. Extremities: Moves all extremities. Neurologic: No focal changes. ASSESSMENT: 1. Adult failure to thrive with generalized weakness. 2. Paranoid schizophrenia. 3. Schizoaffective disorder. 4. Chronic kidney disease stage 4-5. 5. Large abdominal ventral hernia. PLAN: Medically, patient is stable for discharge but physically fully expect that she would be right back to the hospital, as she was after this last discharge. Certainly expect that she may have difficulty caring for herself at this point. We will continue to await [facility]'s assistance. cc: Mckay Bernardo MD
[2019-02-28] MEDS: DEPAKOTE ER PO SCH (20:34)
[2019-02-28] MEDS: DESYREL PO SCH (20:35)
[2019-03-01] MEDS: SYNTHROID PO SCH (06:04)
[2019-03-01] MEDS: PRILOSEC PO SCH (06:04)
[2019-03-01 06:39] LABS: HEMATOCRIT 36.4 % (37.0-47.0); HEMOGLOBIN 11.6 g/dL (12.0-16.0); MCH 27.1 PG (27-31); MCHC 31.9 g/dL (33-37); MPV 9.3 FL (7.4-10.4); RBC 4.28 XMIL (4.2-5.4); RDW 13.8 % (11.5-14.5); WBC 8.66 X1000 (4.8-10.8)
[2019-03-01 06:43] LABS: ALBUMIN 3.3 g/dL (3.5-5.0); CALCIUM 8.6 mg/dL (8.8-10.2); CREATININE 3.6 mg/dL (0.5-0.9); POTASSIUM 4.6 mmol/L (3.5-5.1); TOTAL BILIRUBIN 0.2 mg/dL (0.20-1.00); TOTAL PROTEIN 6.6 g/dL (6.3-8.3)
[2019-03-01] MEDS: ROBAXIN PO SCH ×2 (08:43→22:58)
[2019-03-01] MEDS: VESICARE PO SCH (08:43)
[2019-03-01] MEDS: MIRALAX PO SCH ×2 (08:43→22:58)
[2019-03-01] MEDS: CARAFATE PO SCH ×3 (08:44→15:53)
[2019-03-01] MEDS: BUSPAR PO SCH (08:44)
[2019-03-01] MEDS: COLACE PO SCH ×2 (08:44→22:58)
[2019-03-01] MEDS: HALDOL PO SCH ×2 (08:44→22:59)
[2019-03-01] MEDS: TYLENOL PO PRN (18:58)
--- NOTE | 2019-03-01 19:03 | PROGRESS NOTE ---
DATE: 03/01/2019 SUBJECTIVE: Patient notes she is still very tired and fatigued. Has lots of trouble walking although the staff noted that she was able to walk to the desk without assistance. PHYSICAL EXAMINATION: Vital Signs: Stable and unchanged. Blood pressure 127/79, pulse 93, temp 98.4 degrees. General: The patient is an obese female who is in no current respiratory distress. She is lying in the bed. HEENT: Normocephalic. Neck: Supple. Cardiovascular: Regular rate. Chest: Clear. Abdomen: Soft. Extremities: Moves all extremities. Neurologic: No changes. ASSESSMENT: 1. Adult failure to thrive with generalized weakness, although appears to be improving noted by her ability to walk. This appears to be the same thing she had done prior to admission to this hospital. She was able to walk at [facility] and then subsequently could not walk for the next several days. 2. Chronic kidney disease. 3. Large abdominal wall ventral hernia. 4. Schizoaffective disorder. 5. Paranoid schizophrenia. PLAN: Hopefully, patient can discharge home soon. She medically does not need to be in the hospital. She is simply here for physical purposes. cc: Mckay Bernardo MD
[2019-03-01] MEDS: DESYREL PO SCH (22:58)
[2019-03-01] MEDS: DEPAKOTE ER PO SCH (22:59)
[2019-03-02] MEDS: CARAFATE PO SCH ×4 (05:58→15:45)
[2019-03-02] MEDS: SYNTHROID PO SCH ×2 (05:58→06:05)
[2019-03-02] MEDS: PRILOSEC PO SCH ×2 (05:58→06:04)
[2019-03-02] MEDS ORDERED: CALMOSEPTINE OINTMENT TOP ONE (09:02)
[2019-03-02] MEDS: ROBAXIN PO SCH ×2 (09:04→20:21)
[2019-03-02] MEDS: MIRALAX PO SCH ×2 (09:04→20:21)
[2019-03-02] MEDS: COLACE PO SCH ×2 (09:04→20:23)
[2019-03-02] MEDS: VESICARE PO SCH (09:04)
[2019-03-02] MEDS: BUSPAR PO SCH (09:04)
[2019-03-02] MEDS: HALDOL PO SCH ×2 (09:05→20:22)
--- NOTE | 2019-03-02 15:53 | PROGRESS NOTE ---
DATE: 03/02/2019 SUBJECTIVE: Patient has no new complaints. She is actually ambulating a little bit better. She was able to ambulate to the nurse's desk with assistance yesterday. OBJECTIVE: Vital signs: Temperature 99, pulse 113, respiratory 18, BP 125/76. General: Patient is in no distress. She is pleasant. HEENT: Normocephalic. Neck: Supple. Cardiovascular: Regular rate. Chest: Clear. Abdomen: Soft, obese, nontender. Extremities: Moves all extremities, although generalized weakness. ASSESSMENT: 1. Generalized weakness with deconditioning. She is actually improving with physical therapy. She is starting to ambulate some. 2. Chronic kidney disease stage 5. 3. Chronic constipation. 4. Large abdominal wall hernia. 5. Others. 6. Schizoaffective disorder. 7. Paranoid schizophrenia. PLAN: We will continue patient in the hospital. Continue physical therapy. Continue to assist healthcare social worker in placement. cc: Mckay Bernardo MD
[2019-03-02] MEDS: DESYREL PO SCH (20:22)
[2019-03-02] MEDS: DEPAKOTE ER PO SCH (20:22)
[2019-03-03] MEDS: TYLENOL PO PRN ×2 (03:53→13:53)
[2019-03-03] MEDS: SYNTHROID PO SCH (06:34)
[2019-03-03] MEDS: PRILOSEC PO SCH (06:34)
[2019-03-03] MEDS: CARAFATE PO SCH ×3 (06:34→16:59)
[2019-03-03] MEDS: HALDOL PO SCH ×2 (09:17→21:03)
[2019-03-03] MEDS: VESICARE PO SCH (09:17)
[2019-03-03] MEDS: MIRALAX PO SCH ×2 (09:18→21:02)
[2019-03-03] MEDS: COLACE PO SCH ×2 (09:18→21:03)
[2019-03-03] MEDS: BUSPAR PO SCH (09:18)
[2019-03-03] MEDS: ROBAXIN PO SCH ×2 (09:18→21:02)
--- NOTE | 2019-03-03 10:48 | Diag Imaging Result Doc PS360 ---
KUB ABDOMEN - 03/03/2019 INDICATION: pain//dec uop COMPARISON: None FINDINGS: There is a lot of bowel gas over the proximal left femur. This may represent a large inguinal hernia. Please correlate clinically. No bowel obstruction or free air. IMPRESSION: Possible large hernia over the left femur. Electronically signed by Baljit Gleason 03/03/2019 10:45 AM
--- NOTE | 2019-03-03 19:15 | PROGRESS NOTE ---
DATE: 03/03/2019 SUBJECTIVE: Patient has no new complaints. Notes that she is starting to get a little bit stronger. PHYSICAL EXAMINATION: Vital Signs: Reviewed. Temp 98 degrees, pulse 112, respiratory 18, BP 111/66. General: Patient is in no distress. HEENT: Normocephalic. Neck: Supple. Cardiovascular: Regular rate. Chest: Clear. Abdomen: Soft, nondistended. Extremities: Moves all extremities. ASSESSMENT: 1. Adult failure to thrive with generalized weakness. 2. Paranoid schizophrenia. 3. Schizoaffective disorder. 4. Chronic kidney disease. PLAN: We will continue patient in the hospital until nursing home social worker can arrange discharge planning. cc: Mckay Bernardo MD
[2019-03-03] MEDS: DESYREL PO SCH (21:02)
[2019-03-03] MEDS: DEPAKOTE ER PO SCH (21:03)
[2019-03-04] MEDS: TYLENOL PO PRN ×2 (00:06→22:47)
[2019-03-04] MEDS: SYNTHROID PO SCH (06:20)
[2019-03-04] MEDS: PRILOSEC PO SCH (06:20)
[2019-03-04 07:26] LABS: HEMOGLOBIN 10.8 g/dL (12.0-16.0); MCH 26.7 PG (27-31); MCHC 32.7 g/dL (33-37); MCV 81.5 FL (81-99); MPV 8.3 FL (7.4-10.4); RBC 4.05 XMIL (4.2-5.4); RDW 13.7 % (11.5-14.5); WBC 8.39 X1000 (4.8-10.8)
[2019-03-04 07:50] LABS: ALBUMIN 3.1 g/dL (3.5-5.0); CALCIUM 8.5 mg/dL (8.8-10.2); POTASSIUM 4.3 mmol/L (3.5-5.1); TOTAL BILIRUBIN 0.2 mg/dL (0.20-1.00); TOTAL PROTEIN 6.4 g/dL (6.3-8.3)
[2019-03-04] MEDS: CARAFATE PO SCH ×3 (08:21→16:58)
[2019-03-04] MEDS: BUSPAR PO SCH (08:21)
[2019-03-04] MEDS: ROBAXIN PO SCH ×2 (08:21→21:05)
[2019-03-04] MEDS: MIRALAX PO SCH ×2 (08:21→21:05)
[2019-03-04] MEDS: HALDOL PO SCH ×2 (08:22→21:05)
[2019-03-04] MEDS: COLACE PO SCH ×2 (08:22→21:05)
[2019-03-04] MEDS: VESICARE PO SCH (08:22)
--- NOTE | 2019-03-04 09:45 | Diag Imaging Result Doc PS360 ---
EXAM: CHEST-PORTABLE - 03/04/2019 HISTORY: dyspnea TECHNIQUE: Portable chest COMPARISON: 02/04/2019 FINDINGS: Heart size is normal. The lungs appear essentially clear. There is no pleural effusion or pneumothorax identified. IMPRESSION: No evidence of acute disease. Electronically signed by Ruben Chavez 03/04/2019 9:43 AM
[2019-03-04 11:01] LABS: BILIRUBIN URINE NEGATIVE (NEGATIVE); BLOOD URINE 3+ (NEGATIVE); GLUCOSE URINE NEGATIVE (NEGATIVE); KETONE URINE NEGATIVE (NEGATIVE); NITRITE URINE NEGATIVE (NEGATIVE); PROTEIN URINE 1+(30 mg/dL) mg/dL (NEGATIVE); UROBILINOGEN URINE NORMAL
[2019-03-04 11:02] LABS: CLARITY VERY CLOUDY (CLEAR); LEUKOCYTES URINE 2+ (NEGATIVE)
[2019-03-04 11:08] LABS: URINE RBC TNTC /HPF (<10); URINE WBC TNTC /HPF (<10)
[2019-03-04 11:09] LABS: COLOR PALE YELLOW; URINE BACTERIA 3+ /HFP; URINE EPITHELIAL CELLS <10 /HPF (<10); URINE SOURCE CLEAN CATCH
[2019-03-04] MEDS: ROCEPHIN 1 GM in NS 50 ML IV SCH (16:58)
[2019-03-04] MEDS: DEPAKOTE ER PO SCH (21:05)
[2019-03-04] MEDS: DESYREL PO SCH (21:05)
--- NOTE | 2019-03-04 22:31 | PROGRESS NOTE ---
DATE: 03/03/2019 SUBJECTIVE: The patient currently is lying in bed. She did have a fever last night, although she denies any other fevers. Denies chills. Denies cough, congestion, shortness of breath. Denies any urinary complaints, diarrhea, dysuria. PHYSICAL EXAMINATION: Vital Signs: Temperature 97.6 with a T-max of 101.8, pulse 108, respiratory 18, BP 116/62. General: Patient is in no current respiratory distress. HEENT: Normocephalic. Neck: Supple. Cardiovascular: Regular rate. Chest: Clear, nonlabored. Abdomen: Soft, obese. Extremities: Moves all extremities. ASSESSMENT/PLAN: 1. New fever. We are going to check a chest x-ray, urinalysis, and urine culture and will follow. 2. Generalized weakness. 3. Adult failure to thrive. 4. Stage 5 kidney disease. cc: Mckay Bernardo MD
[2019-03-05] MEDS: SYNTHROID PO SCH (06:21)
[2019-03-05] MEDS: PRILOSEC PO SCH (06:21)
[2019-03-05] MEDS: CARAFATE PO SCH ×3 (07:52→16:42)
[2019-03-05] MEDS: ROBAXIN PO SCH ×2 (08:02→20:28)
[2019-03-05] MEDS: MIRALAX PO SCH ×2 (08:02→20:28)
[2019-03-05] MEDS: BUSPAR PO SCH (08:02)
[2019-03-05] MEDS: VESICARE PO SCH (08:03)
[2019-03-05] MEDS: HALDOL PO SCH ×2 (08:03→20:28)
[2019-03-05] MEDS: COLACE PO SCH ×2 (08:03→20:27)
[2019-03-05] MEDS: ROCEPHIN 1 GM in NS 50 ML IV SCH (13:13)
--- NOTE | 2019-03-05 17:01 | PROGRESS NOTE ---
DATE: 03/03/2019 SUBJECTIVE: The patient notes that she is feeling a lot better. She has been afebrile for the past 24 hours. She is actually sitting in a chair currently, although she did require assistance to get into the chair and will require it to get out of the chair. PHYSICAL EXAMINATION: Vital Signs: Temperature 98, pulse 110, respiratory rate 18, blood pressure 120/46. General: Patient is awake. She is very pleasant, in no distress. HEENT: Normocephalic. Neck: Supple. Cardiovascular: Tachycardia. No murmurs. Chest: Clear, nonlabored. Abdomen: Soft, nondistended. Extremities: Moves all extremities. Neuro: No changes. ASSESSMENT/PLAN: 1. Urinary tract infection with febrile illness. Currently is on antibiotics. Culture is pending. 2. Morbid obesity. 3. Adult failure to thrive with frequent falls. She currently is receiving physical therapy. 4. Chronic kidney disease, stage 5. 5. Schizoaffective disorder. 6. Paranoid schizophrenia. The patient will continue on antibiotics. We will follow her current course. Hopefully, she can discharge to rehab on Friday. cc: Mckay Bernardo MD
[2019-03-05] MEDS: DEPAKOTE ER PO SCH (20:27)
[2019-03-05] MEDS: DESYREL PO SCH (20:28)
[2019-03-06] MEDS: SYNTHROID PO SCH (06:34)
[2019-03-06] MEDS: CARAFATE PO SCH ×3 (06:34→16:54)
[2019-03-06] MEDS: PRILOSEC PO SCH (06:34)
--- NOTE | 2019-03-06 10:01 | PROGRESS NOTE ---
DATE: 03/06/2019 SUBJECTIVE: Patient denies having any acute complaints this morning and is laying comfortably in her bed. OBJECTIVE: Vital Signs: Temperature 99.8 degrees, pulse 95 per minute, respiratory rate 20 per minute, blood pressure 134/70, pulse oximetry 100% on room air. General: The patient is alert and oriented x3. She does not appear to be in any acute distress. Cardiovascular System: First and second heart sounds are audible without any murmurs or gallops. Respiratory System: No respiratory distress noted. Bilateral lung air entry is moderately decreased, but there are no rales or rhonchi present on auscultation. Gastrointestinal System: Patient is morbidly obese. Abdomen is soft and nontender on palpation. Normal bowel sounds are present. DIAGNOSTIC DATA: CBC and BMP from 03/04/2019 were reviewed. H and H are slightly low, but have remained stable. Her hemoglobin and hematocrit were 10.8 and 33 0. Her BUN and creatinine have worsened from 40 and 3.3 on 02/26/2019 to 60 and 4.0 on 03/04/2019. Rest of the chemistry is nondiagnostic. Urinalysis showed 2+ WBCs and too numerous to count on microscopy. Urine culture showed ESBL negative E coli that has been sensitive to Zosyn, nitrofurantoin and amikacin, along with cefazolin. It has been found to be resistant to Bactrim and levofloxacin. IMPRESSION: 1. Extended spectrum beta lactamase negative Escherichia coli urinary tract infection. 2. Acute kidney injury on chronic kidney disease. 3. Hypothyroidism. PLAN: I am going to discontinue ceftriaxone and switch her to Zosyn as per culture sensitivity report for her urinary tract infection. She will also be started on IV fluids to address her prerenal azotemia. Also, we are going to continue with her levothyroxine 100 mcg daily for her hypothyroidism. I am going to have a repeat CBC and CMP tomorrow morning. We will follow hospital course. cc: Yamil Hernandez MD
[2019-03-06] MEDS: ZOSYN 2.25 GM in NS 50 ML IV SCH ×2 (10:43→16:54)
[2019-03-06] MEDS: MIRALAX PO SCH ×2 (10:43→21:06)
[2019-03-06] MEDS: VESICARE PO SCH (10:44)
[2019-03-06] MEDS: BUSPAR PO SCH (10:44)
[2019-03-06] MEDS: COLACE PO SCH ×2 (10:45→21:06)
[2019-03-06] MEDS: ROBAXIN PO SCH ×2 (10:45→21:06)
[2019-03-06] MEDS: HALDOL PO SCH ×2 (10:46→21:06)
[2019-03-06] MEDS: 1/2 NS 1,000 ML IV SCH ×2 (13:52→22:45)
[2019-03-06] MEDS: DEPAKOTE ER PO SCH (21:06)
[2019-03-06] MEDS: DESYREL PO SCH (21:06)
[2019-03-07] MEDS: ZOSYN 2.25 GM in NS 50 ML IV SCH ×3 (01:14→16:55)
[2019-03-07] MEDS: PRILOSEC PO SCH (06:26)
[2019-03-07] MEDS: SYNTHROID PO SCH (06:26)
[2019-03-07] MEDS: CARAFATE PO SCH ×4 (06:26→16:55)
[2019-03-07 06:56] LABS: BASO# 0.02 X1000 (0.0-0.2); BASO% 0.2 % (0.0-0.8); EOS# 0.37 X1000 (0.0-0.7); EOS% 4.1 % (0.0-10.0); HEMATOCRIT 32.8 % (37.0-47.0); HEMOGLOBIN 10.2 g/dL (12.0-16.0); IMM GRAN# 0.47 X1000 (0.0-0.04); IMM GRAN% 5.2 % (0.0-0.5); LYMPH# 1.01 X1000 (1.2-3.4); LYMPH% 11.1 % (20.5-51.1); MCH 25.8 PG (27-31); MCHC 31.1 g/dL (33-37); MONO# 1.31 X1000 (0.11-0.59); MONO% 14.4 % (1.7-9.3); MPV 8.8 FL (7.4-10.4); NEUT# 5.93 X1000 (1.4-6.5); PLT 263 X1000 (130-400); RBC 3.95 XMIL (4.2-5.4); RDW 13.8 % (11.5-14.5); WBC 9.11 X1000 (4.8-10.8)
[2019-03-07 07:05] LABS: BANDS 2 % (0-1); EOS 5 % (1-10); LYMPHS 15 % (21-51); MONO 10 % (1-9); SEGS 68 % (42-75)
[2019-03-07 07:17] LABS: ALBUMIN 2.6 g/dL (3.5-5.0); CALCIUM 8.3 mg/dL (8.8-10.2); CREATININE 3.8 mg/dL (0.5-0.9); POTASSIUM 3.8 mmol/L (3.5-5.1); TOTAL BILIRUBIN 0.2 mg/dL (0.20-1.00); TOTAL PROTEIN 6.4 g/dL (6.3-8.3)
[2019-03-07] MEDS: BUSPAR PO SCH (08:55)
[2019-03-07] MEDS: HALDOL PO SCH ×2 (08:56→21:49)
[2019-03-07] MEDS: VESICARE PO SCH (08:57)
[2019-03-07] MEDS: COLACE PO SCH ×2 (08:57→21:49)
[2019-03-07] MEDS: ROBAXIN PO SCH ×2 (08:57→21:49)
[2019-03-07] MEDS: MIRALAX PO SCH ×2 (09:06→21:49)
--- NOTE | 2019-03-07 11:34 | PROGRESS NOTE ---
DATE: 03/07/2019 SUBJECTIVE: The patient denies having any acute complaints this morning. OBJECTIVE: Vital Signs: Temperature 97.5 degrees, pulse 83 per minute, respiratory rate 18 per minute, blood pressure 121/67, pulse oximetry is 95% on room air. General: The patient is alert and oriented x3. She does not appear to be in any acute distress. Cardiovascular: First and second heart sounds are audible without any murmurs or gallops. Respiratory: No respiratory distress noted. Bilateral lung air entry is moderately decreased, but there are no rales or rhonchi present on auscultation. Gastrointestinal: The patient is morbidly obese. Abdomen is soft and nontender on palpation. Normal bowel sounds are present. DIAGNOSTIC DATA: CBC showed hemoglobin of 10.2, hematocrit 32.8, with MCV of 83.0. The rest of the CBC is nondiagnostic. Comprehensive metabolic panel showed sodium level of 135, BUN of 58, creatinine 3.8, and glucose level of 181. The rest of the comprehensive metabolic panel is nondiagnostic. In comparison, her BUN and creatinine were 60 and 4.0, respectively, on 03/04/2019. IMPRESSION: 1. Extended spectrum beta lactamase negative Escherichia coli urinary tract infection. 2. Acute kidney injury on chronic kidney disease. 3. Hypothyroidism. PLAN: The patient will be continued on IV Zosyn as per culture sensitivity report. She will also continue with IV fluids since her acute kidney injury appears to be getting better. We will also continue with the current dose of levothyroxine 100 mcg orally once daily. Further recommendations will be given as per hospital course. cc: Yamil Hernandez MD
[2019-03-07] MEDS: 1/2 NS 1,000 ML IV SCH ×2 (12:07→16:59)
[2019-03-07] MEDS: DEPAKOTE ER PO SCH (21:49)
[2019-03-07] MEDS: DESYREL PO SCH (21:49)
[2019-03-08] MEDS: 1/2 NS 1,000 ML IV SCH ×4 (01:04→23:21)
[2019-03-08] MEDS: ZOSYN 2.25 GM in NS 50 ML IV SCH ×3 (01:04→16:12)
[2019-03-08] MEDS: PRILOSEC PO SCH (06:22)
[2019-03-08] MEDS: SYNTHROID PO SCH (06:23)
[2019-03-08] MEDS: CARAFATE PO SCH ×4 (06:23→16:12)
[2019-03-08 06:56] LABS: CALCIUM 8.4 mg/dL (8.8-10.2); CREATININE 3.2 mg/dL (0.5-0.9); POTASSIUM 4.2 mmol/L (3.5-5.1)
[2019-03-08] MEDS ORDERED: KLOR-CON PO ONE (08:36)
[2019-03-08] MEDS: HALDOL PO SCH ×2 (09:05→20:26)
[2019-03-08] MEDS: BUSPAR PO SCH (09:05)
[2019-03-08] MEDS: COLACE PO SCH ×2 (09:05→20:26)
[2019-03-08] MEDS: MIRALAX PO SCH ×2 (09:05→20:25)
[2019-03-08] MEDS: VESICARE PO SCH (09:06)
[2019-03-08] MEDS: ROBAXIN PO SCH ×2 (09:06→20:26)
--- NOTE | 2019-03-08 19:16 | PROGRESS NOTE ---
DATE: 03/08/2019 SUBJECTIVE: Patient notes that she is starting to feel a little bit stronger. She is able to get out of bed but still requires assistance. She is starting to ambulate a little bit better. OBJECTIVE: Vital signs: Temperature 98 degrees, pulse 87, respiratory rate 18, BP 122/84. General: Patient is an obese female who is currently in no respiratory distress. HEENT: Normocephalic. Neck: Supple. Cardiovascular: Regular rate. Chest: Clear. Abdomen: Soft. Extremities: Moves all extremities. Neurologic: No changes. ASSESSMENT: 1. Adult failure to thrive with generalized weakness. 2. Urinary tract infection, resolved. 3. Chronic kidney disease stage 5. 4. Hyponatremia. PLAN: We will continue patient in the hospital until she is either physically strong enough to go home or until she is able to go to rehab. cc: Mckay Bernardo MD
[2019-03-08] MEDS: DESYREL PO SCH (20:26)
[2019-03-08] MEDS: DEPAKOTE ER PO SCH (20:26)
[2019-03-09] MEDS: ZOSYN 2.25 GM in NS 50 ML IV SCH ×2 (01:30→08:56)
[2019-03-09] MEDS: SYNTHROID PO SCH (06:07)
[2019-03-09] MEDS: PRILOSEC PO SCH (06:07)
[2019-03-09] MEDS: CARAFATE PO SCH ×3 (08:56→16:47)
[2019-03-09] MEDS: VESICARE PO SCH (08:56)
[2019-03-09] MEDS: BUSPAR PO SCH (08:56)
[2019-03-09] MEDS: COLACE PO SCH ×2 (08:56→20:36)
[2019-03-09] MEDS: ROBAXIN PO SCH ×2 (08:56→20:36)
[2019-03-09] MEDS: HALDOL PO SCH ×2 (08:57→20:36)
[2019-03-09] MEDS: 1/2 NS 1,000 ML IV SCH ×2 (08:57→19:19)
[2019-03-09] MEDS: MIRALAX PO SCH ×2 (08:58→20:40)
--- NOTE | 2019-03-09 14:35 | PROGRESS NOTE ---
DATE: 03/09/2019 SUBJECTIVE: The patient reports feeling very weak. She expressed her desire to go to rehab facility. Denies any fever or chills. OBJECTIVE: Vital signs: Temperature is 97.6, heart rate 86, respiratory rate 18, blood pressure 126/81, O2 saturation is 99% on room air. General: This is a chronically ill-appearing 63-year- old female lying in bed, in no acute distress. Cardiovascular: S1 and S2 heard. No murmurs, gallops or rubs. Regular rate and rhythm. Respiratory: Clear bilaterally to auscultation. No work of breathing or using accessory muscles. Abdomen: Soft. Nontender to palpation. Bowel sounds present. No organomegaly. Extremities: No cyanosis, clubbing or edema. Peripheral pulses present in both legs. Neurologic: The patient is alert and oriented x3. Moving all 4 extremities. DIAGNOSTIC DATA: Laboratory data reviewed. ASSESSMENT AND PLAN: 1. Adult failure to thrive with general weakness. Physical Therapy is working with this patient, but she remains profoundly weak. 2. Urinary tract infection. The patient has had UTI by E. coli that is sensitive to cefazolin, so we will continue with that medication for at least 7 days. She has received 4 days of Zosyn already. 3. Chronic kidney disease stage 5. We will to monitor BMP daily. 4. Hyponatremia. That condition is resolved. There is no BMP from today but from yesterday is completely normal. DISPOSITION: The patient is medically stable. The UTI is almost resolved. At this point, we are waiting for a rehab bed, but unfortunately the patient does not have any insurance. At this point, we will continue to monitor this patient here closely. cc: Toi Ly MD
[2019-03-09] MEDS: KEFZOL 2 GM/D5W 2 GM/50 ML IVPB IV SCH ×2 (15:00→22:09)
[2019-03-09] MEDS: DEPAKOTE ER PO SCH (20:35)
[2019-03-09] MEDS: DESYREL PO SCH (20:36)
[2019-03-09] MEDS: TYLENOL PO PRN (22:18)
[2019-03-10 06:00] LABS: BASO# 0.07 X1000 (0.0-0.2); BASO% 0.6 % (0.0-0.8); EOS# 0.34 X1000 (0.0-0.7); EOS% 3.1 % (0.0-10.0); HEMOGLOBIN 9.8 g/dL (12.0-16.0); IMM GRAN# 1.19 X1000 (0.0-0.04); IMM GRAN% 10.9 % (0.0-0.5); LYMPH# 1.22 X1000 (1.2-3.4); LYMPH% 11.2 % (20.5-51.1); MCHC 30.6 g/dL (33-37); MCV 84.9 FL (81-99); MONO# 1.18 X1000 (0.11-0.59); MONO% 10.8 % (1.7-9.3); NEUT# 6.94 X1000 (1.4-6.5); NEUT% 63.4 % (42.2-75.2); PLT 376 X1000 (130-400); RBC 3.77 XMIL (4.2-5.4); RDW 14.2 % (11.5-14.5); WBC 10.94 X1000 (4.8-10.8)
[2019-03-10 06:16] LABS: CALCIUM 8.1 mg/dL (8.8-10.2); CREATININE 3.4 mg/dL (0.5-0.9); POTASSIUM 4.1 mmol/L (3.5-5.1)
[2019-03-10] MEDS: KEFZOL 2 GM/D5W 2 GM/50 ML IVPB IV SCH ×3 (06:26→22:16)
[2019-03-10] MEDS: CARAFATE PO SCH ×3 (06:30→17:47)
[2019-03-10] MEDS: SYNTHROID PO SCH (06:30)
[2019-03-10] MEDS: PRILOSEC PO SCH (06:30)
[2019-03-10] MEDS: 1/2 NS 1,000 ML IV SCH ×2 (06:31→17:54)
[2019-03-10 07:23] LABS: BANDS 4 % (0-1); LYMPHS 11 % (21-51); MONO 8 % (1-9); SEGS 77 % (42-75)
[2019-03-10] MEDS: VESICARE PO SCH (09:30)
[2019-03-10] MEDS: BUSPAR PO SCH (09:30)
[2019-03-10] MEDS: COLACE PO SCH ×2 (09:30→22:16)
[2019-03-10] MEDS: HALDOL PO SCH ×2 (09:30→22:15)
[2019-03-10] MEDS: ROBAXIN PO SCH ×2 (09:30→22:15)
[2019-03-10] MEDS: MIRALAX PO SCH ×2 (10:39→22:16)
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
[2019-03-10] MEDS: DEPAKOTE ER PO SCH (22:15)
[2019-03-10] MEDS: DESYREL PO SCH (22:15)
[2019-03-11] MEDS: 1/2 NS 1,000 ML IV SCH ×3 (04:42→19:05)
[2019-03-11 06:16] LABS: BASO# 0.09 X1000 (0.0-0.2); BASO% 0.8 % (0.0-0.8); EOS# 0.34 X1000 (0.0-0.7); EOS% 3.1 % (0.0-10.0); HEMATOCRIT 31.8 % (37.0-47.0); HEMOGLOBIN 9.5 g/dL (12.0-16.0); IMM GRAN# 1.53 X1000 (0.0-0.04); IMM GRAN% 14.2 % (0.0-0.5); LYMPH# 1.43 X1000 (1.2-3.4); LYMPH% 13.2 % (20.5-51.1); MCH 25.6 PG (27-31); MCHC 29.9 g/dL (33-37); MCV 85.7 FL (81-99); MONO# 1.14 X1000 (0.11-0.59); MONO% 10.5 % (1.7-9.3); MPV 7.8 FL (7.4-10.4); NEUT# 6.28 X1000 (1.4-6.5); NEUT% 58.2 % (42.2-75.2); PLT 398 X1000 (130-400); RBC 3.71 XMIL (4.2-5.4); RDW 14.2 % (11.5-14.5); WBC 10.81 X1000 (4.8-10.8)
[2019-03-11 06:24] LABS: CALCIUM 8.4 mg/dL (8.8-10.2); CREATININE 3.2 mg/dL (0.5-0.9); POTASSIUM 4.4 mmol/L (3.5-5.1)
[2019-03-11] MEDS: KEFZOL 2 GM/D5W 2 GM/50 ML IVPB IV SCH ×3 (06:46→21:16)
[2019-03-11] MEDS: PRILOSEC PO SCH (06:47)
[2019-03-11] MEDS: SYNTHROID PO SCH (06:47)
[2019-03-11 06:48] LABS: EOS 2 % (1-10); LYMPHS 16 % (21-51); MONO 12 % (1-9); SEGS 70 % (42-75)
[2019-03-11] MEDS: VESICARE PO SCH (10:46)
[2019-03-11] MEDS: ROBAXIN PO SCH ×2 (10:46→21:16)
[2019-03-11] MEDS: CARAFATE PO SCH ×3 (10:47→15:53)
[2019-03-11] MEDS: COLACE PO SCH ×2 (10:47→21:16)
[2019-03-11] MEDS: HALDOL PO SCH ×2 (10:47→21:16)
[2019-03-11] MEDS: BUSPAR PO SCH (10:48)
[2019-03-11] MEDS: MIRALAX PO SCH ×2 (10:48→21:29)
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
[2019-03-11 11:33] LABS: BILIRUBIN URINE NEGATIVE (NEGATIVE); BLOOD URINE NEGATIVE (NEGATIVE); CLARITY CLEAR (CLEAR); COLOR YELLOW; GLUCOSE URINE NEGATIVE (NEGATIVE); KETONE URINE NEGATIVE (NEGATIVE); LEUKOCYTES URINE 1+ (NEGATIVE); NITRITE URINE NEGATIVE (NEGATIVE); PH URINE 6.5; PROTEIN URINE NEGATIVE (NEGATIVE); UROBILINOGEN URINE NORMAL
[2019-03-11 11:34] LABS: URINE BACTERIA 3+ /HFP; URINE CAST NONE SEEN /LPF; URINE CRYSTAL NONE SEEN /HPF; URINE EPITHELIAL CELLS <10 /HPF (<10); URINE RBC <10 /HPF (<10); URINE SOURCE CATH; URINE WBC <10 /HPF (<10); URINE YEAST NONE SEEN /HPF
[2019-03-11] MEDS: TYLENOL PO PRN (15:53)
[2019-03-11] MEDS: DESYREL PO SCH (21:16)
[2019-03-11] MEDS: DEPAKOTE ER PO SCH (21:17)
[2019-03-12] MEDS: 1/2 NS 1,000 ML IV SCH ×3 (05:31→17:34)
[2019-03-12] MEDS: PRILOSEC PO SCH ×2 (05:31→06:15)
[2019-03-12] MEDS: KEFZOL 2 GM/D5W 2 GM/50 ML IVPB IV SCH ×3 (05:31→21:09)
[2019-03-12] MEDS: CARAFATE PO SCH ×4 (05:32→17:34)
[2019-03-12] MEDS: SYNTHROID PO SCH ×2 (05:32→06:15)
[2019-03-12 06:09] LABS: BASO# 0.06 X1000 (0.0-0.2); BASO% 0.5 % (0.0-0.8); EOS# 0.36 X1000 (0.0-0.7); EOS% 3.2 % (0.0-10.0); HEMATOCRIT 33.1 % (37.0-47.0); IMM GRAN# 1.68 X1000 (0.0-0.04); LYMPH# 1.65 X1000 (1.2-3.4); LYMPH% 14.7 % (20.5-51.1); MCH 25.6 PG (27-31); MCHC 30.2 g/dL (33-37); MCV 84.7 FL (81-99); MONO% 8.9 % (1.7-9.3); MPV 7.7 FL (7.4-10.4); NEUT# 6.47 X1000 (1.4-6.5); NEUT% 57.7 % (42.2-75.2); PLT 414 X1000 (130-400); RBC 3.91 XMIL (4.2-5.4); RDW 14.1 % (11.5-14.5); WBC 11.22 X1000 (4.8-10.8)
[2019-03-12 06:16] LABS: CALCIUM 8.5 mg/dL (8.8-10.2); CREATININE 3.1 mg/dL (0.5-0.9); POTASSIUM 4.5 mmol/L (3.5-5.1)
[2019-03-12] MEDS: COLACE PO SCH ×2 (09:43→20:21)
[2019-03-12] MEDS: HALDOL PO SCH ×2 (09:43→20:21)
[2019-03-12] MEDS: VESICARE PO SCH (09:43)
[2019-03-12] MEDS: BUSPAR PO SCH (09:43)
[2019-03-12] MEDS: ROBAXIN PO SCH ×2 (09:44→20:21)
[2019-03-12] MEDS: MIRALAX PO SCH ×2 (09:44→20:21)
[2019-03-12 10:30] LABS: ANISOCYTOSIS 1+; BANDS 5 % (0-1); LYMPHS 15 % (21-51); MONO 9 % (1-9); SEGS 71 % (42-75)
--- NOTE | 2019-03-12 11:10 | PROGRESS NOTE ---
DATE: 03/12/2019 SUBJECTIVE: Patient denies having any acute complaints this morning. OBJECTIVE: Vital Signs: Temperature 97.6 degrees, pulse 79 per minute, respiratory rate 16 per minute, blood pressure 132/75, pulse oximetry 97% on room air. General: Patient is alert and awake. She does not appear to be in any acute distress. Cardiovascular System: First and second heart sounds are audible without any murmurs or gallops. Respiratory System: Bilateral lung air entry is moderately decreased but there are no rales or rhonchi present on auscultation. Gastrointestinal System: Patient is morbidly obese. Abdomen is soft and nontender on palpation. Normal bowel sounds are present. DIAGNOSTIC DATA: CBC shows WBC count of 11.22, hemoglobin 10.0, hematocrit 33.1, and platelet count of 414,000. Basic metabolic panel done this morning showed BUN of 37 and creatinine 3.1. In comparison, her BUN and creatinine were 39 and 3.2 respectively yesterday. Rest of the basic metabolic panel is nondiagnostic. IMPRESSION: 1. Extended-spectrum [id number] Escherichia coli urinary tract infection. 2. Acute kidney injury on chronic kidney disease. 3. Hypothyroidism. 4. Generalized deconditioning. PLAN: We are going to continue her on IV cefazolin for another 4 days, after which she will be ready to be transferred out to rehab facility. We will continue with the IV fluids as well and give her supportive care. She did have a bed ready at [facility] this morning, but they will not be able to provide her 3 times a day IV antibiotics and therefore, we are going to defer her transfer to the day after Day. cc: Yamil Hernandez MD
[2019-03-12] MEDS: DESYREL PO SCH (20:21)
[2019-03-12] MEDS: DEPAKOTE ER PO SCH (20:21)
[2019-03-13] MEDS: KEFZOL 2 GM in NS 100 ML IV SCH ×3 (06:18→21:35)
[2019-03-13] MEDS: 1/2 NS 1,000 ML IV SCH ×2 (06:18→16:12)
[2019-03-13] MEDS: SYNTHROID PO SCH (06:19)
[2019-03-13] MEDS: CARAFATE PO SCH ×5 (06:19→16:13)
[2019-03-13] MEDS: PRILOSEC PO SCH (06:19)
[2019-03-13 07:04] LABS: CALCIUM 8.7 mg/dL (8.8-10.2); CREATININE 3.2 mg/dL (0.5-0.9); POTASSIUM 4.4 mmol/L (3.5-5.1)
[2019-03-13] MEDS: MIRALAX PO SCH ×2 (10:26→20:31)
[2019-03-13] MEDS: VESICARE PO SCH (10:26)
[2019-03-13] MEDS: HALDOL PO SCH ×2 (10:27→20:31)
[2019-03-13] MEDS: ROBAXIN PO SCH ×2 (10:27→20:31)
[2019-03-13] MEDS: BUSPAR PO SCH (10:27)
[2019-03-13] MEDS: COLACE PO SCH ×2 (10:27→20:31)
--- NOTE | 2019-03-13 12:05 | PROGRESS NOTE ---
DATE: 03/13/2019 SUBJECTIVE: The patient denies having any acute complaints this morning and is lying comfortably in her bed. OBJECTIVE: Vital Signs: Temperature 98.9 degrees, pulse 86 per minute, respiratory rate 20 per minute, blood pressure 124/75, pulse oximetry 99% on room air. General: Patient is alert and awake. She does not appear to be in any acute distress. Cardiovascular System: First and second heart sounds are audible without murmurs or gallops. Respiratory System: No respiratory distress noted. Bilateral lung air entry is good without any rales or rhonchi. Gastrointestinal system: Abdomen is soft and nondistended. Normal bowel sounds are present. DIAGNOSTIC DATA: BMP done this morning showed BUN of 34 and creatinine 3.2. Glucose levels were found to be 245. IMPRESSION: 1. Urinary tract infection secondary to Escherichia coli. 2. Acute kidney injury on chronic kidney disease. 3. Hypothyroidism. 4. Generalized deconditioning. PLAN: We are going to continue with IV cefazolin for another 3 days so that we can complete 10 days of antibiotic therapy. After that, she can be transferred out to rehab facility. We will continue with IV fluids along with supportive care. cc: Yamil Hernandez MD
[2019-03-13] MEDS: DEPAKOTE ER PO SCH (20:31)
[2019-03-13] MEDS: DESYREL PO SCH (20:31)
[2019-03-14] MEDS: 1/2 NS 1,000 ML IV SCH ×3 (00:21→20:24)
[2019-03-14] MEDS: KEFZOL 2 GM in NS 100 ML IV SCH ×3 (05:04→21:06)
[2019-03-14] MEDS: PRILOSEC PO SCH (06:14)
[2019-03-14] MEDS: SYNTHROID PO SCH (06:14)
[2019-03-14] MEDS: CARAFATE PO SCH ×4 (06:14→18:45)
[2019-03-14 07:12] LABS: BASO# 0.05 X1000 (0.0-0.2); BASO% 0.5 % (0.0-0.8); EOS# 0.36 X1000 (0.0-0.7); EOS% 3.4 % (0.0-10.0); HEMATOCRIT 34.7 % (37.0-47.0); HEMOGLOBIN 10.5 g/dL (12.0-16.0); IMM GRAN# 1.33 X1000 (0.0-0.04); IMM GRAN% 12.5 % (0.0-0.5); LYMPH# 1.91 X1000 (1.2-3.4); LYMPH% 17.9 % (20.5-51.1); MCH 25.7 PG (27-31); MCHC 30.3 g/dL (33-37); MONO# 1.07 X1000 (0.11-0.59); NEUT# 5.95 X1000 (1.4-6.5); NEUT% 55.7 % (42.2-75.2); PLT 369 X1000 (130-400); RBC 4.08 XMIL (4.2-5.4); RDW 14.4 % (11.5-14.5); WBC 10.67 X1000 (4.8-10.8)
[2019-03-14 07:15] LABS: BANDS 2 % (0-1); EOS 4 % (1-10); LYMPHS 20 % (21-51); MONO 8 % (1-9); SEGS 56 % (42-75)
[2019-03-14 07:31] LABS: AGAP 12; ALBUMIN 2.8 g/dL (3.5-5.0); ALKALINE PHOSPHATASE 128 U/L (32-104); BUN 34 mg/dL (8-22); CALCIUM 9.4 mg/dL (8.8-10.2); CHLORIDE 109 mmol/L (98-107); COSMO 290; ESTIMATED GFR 16; GLUCOSE 150 mg/dL (70-104); GOT 11 U/L (10-30); MAGNESIUM 1.8 mg/dL (1.5-2.7); POTASSIUM 4.8 mmol/L (3.5-5.1); SODIUM 140 mmol/L (136-145); TCO2 19 mmol/L (25-35); TOTAL BILIRUBIN < 0.15 mg/dL (0.20-1.00); TOTAL PROTEIN 6.2 g/dL (6.3-8.3)
[2019-03-14 07:44] LABS: GPT < 5 U/L (10-36)
[2019-03-14] MEDS: MIRALAX PO SCH ×2 (10:57→20:24)
[2019-03-14] MEDS: COLACE PO SCH ×2 (10:57→20:24)
[2019-03-14] MEDS: BUSPAR PO SCH (10:58)
[2019-03-14] MEDS: HALDOL PO SCH ×2 (10:58→20:25)
[2019-03-14] MEDS: VESICARE PO SCH (10:58)
[2019-03-14] MEDS: ROBAXIN PO SCH ×2 (10:58→20:25)
--- NOTE | 2019-03-14 13:42 | PROGRESS NOTE ---
DATE: 03/14/2019 SUBJECTIVE: The patient reports still some back pain. He requests something different than Tylenol. OBJECTIVE: Vital Signs: Temperature 98.5 degrees, heart rate 80, respiratory rate 16, blood pressure 123/78, O2 saturation 99% on room air. General: This is a 63-year-old female, lying in bed in no acute distress. Cardiovascular: S1, S2 heard. No murmurs, gallops, or rubs. Regular rate and rhythm. Respiratory: Clear bilaterally to auscultation. No work of breathing or using accessory muscles. Abdomen: Soft. Nontender to palpation. Bowel sounds present. No organomegaly. Extremities: No clubbing, cyanosis, or edema. Peripheral pulses present in both legs. Neurological: The patient is sleepy, but answers questions appropriately. Moves all 4 extremities spontaneously. LABORATORY DATA: Reviewed. ASSESSMENT: 1. Urinary tract infection secondary to Escherichia coli. 2. Acute kidney injury on chronic kidney disease. 3. Hypothyroidism. 4. Generally deconditioned. PLAN: At this point, will continue with IV cefazolin for a couple of days to complete 10 days of antibiotics. We are still waiting for a rehab bed for this patient. cc: Toi Ly MD
[2019-03-14] MEDS: ULTRAM PO PRN ×2 (14:24→20:25)
[2019-03-14] MEDS: DEPAKOTE ER PO SCH (20:24)
[2019-03-14] MEDS: DESYREL PO SCH (20:24)
[2019-03-15] MEDS: 1/2 NS 1,000 ML IV SCH ×2 (06:25→14:24)
[2019-03-15] MEDS: SYNTHROID PO SCH (06:26)
[2019-03-15] MEDS: PRILOSEC PO SCH (06:26)
[2019-03-15] MEDS: KEFZOL 2 GM in NS 100 ML IV SCH ×3 (06:28→21:54)
[2019-03-15] MEDS: CARAFATE PO SCH ×3 (06:30→17:42)
[2019-03-15] MEDS: ULTRAM PO PRN ×2 (11:08→21:54)
[2019-03-15] MEDS: BUSPAR PO SCH (11:09)
[2019-03-15] MEDS: VESICARE PO SCH (11:09)
[2019-03-15] MEDS: HALDOL PO SCH ×2 (11:09→21:55)
[2019-03-15] MEDS: MIRALAX PO SCH ×2 (11:09→21:55)
[2019-03-15] MEDS: ROBAXIN PO SCH ×2 (11:09→21:54)
[2019-03-15] MEDS: COLACE PO SCH ×2 (11:09→21:54)
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
[2019-03-15] MEDS: DESYREL PO SCH (21:54)
[2019-03-15] MEDS: DEPAKOTE ER PO SCH (21:55)
[2019-03-16] MEDS: 1/2 NS 1,000 ML IV SCH (03:15)
[2019-03-16] MEDS: KEFZOL 2 GM in NS 100 ML IV SCH ×2 (05:17→15:39)
[2019-03-16] MEDS: CARAFATE PO SCH ×4 (05:17→15:51)
[2019-03-16] MEDS: SYNTHROID PO SCH ×2 (05:18→06:12)
[2019-03-16] MEDS: PRILOSEC PO SCH ×2 (05:18→06:12)
[2019-03-16 07:11] LABS: CALCIUM 8.2 mg/dL (8.8-10.2); CREATININE 3.2 mg/dL (0.5-0.9); POTASSIUM 4.3 mmol/L (3.5-5.1)
[2019-03-16 07:46] LABS: BASO# 0.04 X1000 (0.0-0.2); BASO% 0.4 % (0.0-0.8); EOS# 0.25 X1000 (0.0-0.7); EOS% 2.8 % (0.0-10.0); HEMATOCRIT 33.8 % (37.0-47.0); HEMOGLOBIN 10.1 g/dL (12.0-16.0); IMM GRAN# 0.66 X1000 (0.0-0.04); IMM GRAN% 7.4 % (0.0-0.5); LYMPH# 1.55 X1000 (1.2-3.4); LYMPH% 17.4 % (20.5-51.1); MCH 25.4 PG (27-31); MCHC 29.9 g/dL (33-37); MCV 84.9 FL (81-99); MONO# 1.13 X1000 (0.11-0.59); MONO% 12.7 % (1.7-9.3); MPV 8.5 FL (7.4-10.4); NEUT# 5.29 X1000 (1.4-6.5); NEUT% 59.3 % (42.2-75.2); PLT 267 X1000 (130-400); RBC 3.98 XMIL (4.2-5.4); RDW 14.5 % (11.5-14.5); WBC 8.92 X1000 (4.8-10.8)
[2019-03-16 10:16] LABS: EOS 2 % (1-10); LYMPHS 17 % (21-51); MONO 10 % (1-9); SEGS 71 % (42-75)
--- NOTE | 2019-03-16 10:25 | DISCHARGE SUMMARY ---
ADMISSION DATE: 02/18/2019 DISCHARGE DATE: 03/16/2019 CONSULTATIONS: None. PERTINENT PROCEDURES: 1. Right ankle x-ray: Posterior calcaneal sclerosis suspicious for healing stress fracture. Lucent lesion within the talar dome which may represent osteochondral defect, calcaneal spur, midfoot osteoarthritis. 2. Abdominal x-ray: Possible large hernia over the left femur. 3. Chest x-ray: No evidence of acute disease. DISCHARGE DIAGNOSES: 1. Urinary tract infection secondary to Escherichia coli. The patient has been on cefazolin for 10 days. 2. Chronic kidney disease stage 5 with BUN 38 and a creatinine of 3.2. 3. Hypothyroidism. Continue Synthroid. 4. Physical deconditioning. Patient has been working with physical therapy. Will be discharged to rehab today. 5. Large abdominal ventral hernia. 6. Iron deficiency. 7. Arrhythmia. HOSPITAL COURSE: Briefly, Ms. Acosta is a 63-year-old female, well known to our service, who had just recently been discharged on 02/17/2019 from [facility]. Her presenting complaint at that time was inability to stand and weakness. 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 She also has schizoaffective and paranoid schizophrenia. She was evaluated by PT and worked with them throughout that hospital admission. Unfortunately, secondary to insurance, she was not able to discharge to rehab and she walked up to 620 feet. Social workers notified [facility] in hopes to get more frequent home visits. She had friends that promised to follow up with her after her discharge. She states that she went home on the day of discharge. She was sitting down and, when she got up around midnight to go to the restroom, she had a fall and laid in the floor until a friend came and checked on her later in the afternoon. Again, she was brought into the ED for generalized weakness. Her labs were essentially stable from that discharge. We did rule out rhabdomyolysis given her long stent on the floor. She was initiated on IV fluid. Reconsulted Physical Therapy as well as [employer] to get her placement. She was found to have an Escherichia coli urinary tract infection where she has received IV antibiotics. She has been working with Physical Therapy as well as [employer] working on her case. They do have a bed for her today at [facility]. VITAL SIGNS: At time of discharge, temperature is 98.4 degrees, heart rate 74, respirations 18, blood pressure 114/60, O2 is 94% on room air. DISCHARGE DIET: Renal. DISCHARGE MEDICATIONS: 1. Depakote ER 1000 mg p.o. at bedtime. 2. Desyrel 150 mg p.o. at bedtime. 3. Haldol 5 mg p.o. at bedtime. 4. Haldol 2.5 mg p.o. daily. 5. Buspirone 10 mg p.o. daily. 6. Colace 100 mg p.o. b.i.d. 7. MiraLAX 17 g p.o. b.i.d. 8. Robaxin 500 mg p.o. b.i.d. 9. Synthroid 100 mcg p.o. daily. 10. Ultram 50 mg p.o. q.6 hours p.r.n. pain. 11. VESIcare 5 mg p.o. daily. FOLLOWUP: Ms. Acosta is being discharged to [facility]. She has completed her full course of IV antibiotics as of yesterday and will be discharged today. She is to take all medications as prescribed and can return to the ED for any worsening of symptoms. Dictated by ALBERT Simpson for Mckay Bernardo MD cc: Mckay Bernardo MD
[2019-03-16] MEDS: ROBAXIN PO SCH (10:50)
[2019-03-16] MEDS: BUSPAR PO SCH (10:50)
[2019-03-16] MEDS: MIRALAX PO SCH (10:50)
[2019-03-16] MEDS: COLACE PO SCH (10:50)
[2019-03-16] MEDS: VESICARE PO SCH (10:50)
[2019-03-16] MEDS: HALDOL PO SCH (10:51)
[2019-03-16 15:24] VITALS: BP 121/71
--- NOTE | 2019-03-17 01:50 | DISCHARGE SUMMARY ---
ADMISSION DATE: 02/18/2019 DISCHARGE DATE: 03/16/2019 ADDENDUM: The patient was seen and examined by myself. Full note dictated and discussed with the nurse practitioner. The patient presented to the hospital after having fallen at home. She was found to be down for several hours. She was admitted and placed on fluids. Thankfully her hospital course actually continued to improve. She did have a UTI that was caused by E coli. She has been on antibiotics for several days. Continue these antibiotics for a couple of more days to complete her treatment. She has a history of chronic kidney disease and physical deconditioning. We will transition her to rehabilitation. cc: Mckay Bernardo MD
== END 2019-03-16 17:35 | DRG 641 ==
LOC: P.ED 15:23 → P.MEDSURG 21:35 → SUATTDRO 21:35 → P.MEDSURG 03-16 13:02
PROVIDERS: ATTEND Family Medicine